=== PATIENT | female | born 1960 | race Caucasian/White ===

== ENCOUNTER 2022-04-25 16:23 | Emergency (ER) | payer MEDICARE, MEDICAID, SELFPAY ==
[2022-04-25] VITALS (7 sets, daily range): BP systolic 132–145; BP diastolic 83–96; PULSE 99–117; RESP 16–20; TEMP 36.9; O2SAT 92–98; BMI 35.4
--- NOTE | 2022-04-25 16:28 | XRR_ITS ---
PROCEDURE INFORMATION: Exam: XR Chest Exam date and time: 04/25/2022 4:33 PM Age: 62 years old Clinical indication: Pain; Angina pectoris; Additional info: Chest pain TECHNIQUE: Imaging protocol: Radiologic exam of the chest. Views: 1 view. COMPARISON: CT abdomen pelvis wo/w [id number] 08/21/2016 1:52 PM FINDINGS: Limitations: The study is made with less than full inspiration. Lungs: Visualized portions of the lungs are clear. Pleural spaces: Unremarkable. No pleural effusion. No pneumothorax. Heart/Mediastinum: Heart is within normal limits of size. Bones/joints: Unremarkable. XR/XR chest 1V portable [id number] IMPRESSION: No acute infiltrate.
--- NOTE | 2022-04-25 16:46 | PC.PHAR ---
pt states she doesnt know her medications-pt states she has a nurse from [facility] that sets her meds up on mondays-waiting on med list to be faxed from [facility]-notes are made in the pharmacy comments with last filled dates
--- NOTE | 2022-04-25 17:00 | PC.NURSE ---
PT NOT GIVEN ORDERED ASA D/T DUPLICATE DOSE BEING GIVEN BY EMS STORE RECEIVING SPECIALIST.
--- NOTE | 2022-04-25 17:02 | ECG_ITS ---
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 Measurements Intervals [place] Rate: 110 P: 30 [place]: 160 QRS: -5 QRSD: 97 T: 27 QT: 337 QTc: 457 Interpretive Statements SINUS TACHYCARDIA POSSIBLE ANTERIOR MYOCARDIAL INFARCTION , PROBABLY OLD [30 ms Q WAVE IN V3/V4, OR R < 0.2 mV IN V4] INFERIOR MYOCARDIAL INFARCTION , PROBABLY OLD [40+ ms Q WAVE AND/OR ST/T ABNORMALITY IN II/aVF] No previous ECG available for comparison Electronically Signed On 04-25-2022 20:59:24 SEARCH ENGINE OPTIMIZER by Faith Mancini M.D. [id number]
[2022-04-25 17:10] LABS: Basophils # 0.1 10^3/uL (0.0-0.1); Basophils % 0.7 %; Eosinophils # 0.1 10^3/uL (0.0-0.8); Eosinophils % 0.6 %; Hematocrit 39.4 % (37.0-47.0); Hemoglobin 12.5 g/dL (11.5-15.3); Lymphocytes # 2.5 10^3/uL (0.8-4.8); Lymphocytes % 29.6 %; Mean Corpuscular HGB Conc 31.7 g/dL (30.0-36.0); Mean Corpuscular Hemoglobin 26.4 pg (28.0-34.0); Mean Corpuscular Volume 83.1 fl (81-99); Mean Platelet Volume 9.6 fL (7.4-10.4); Monocytes # 0.9 10^3/uL (0.2-0.9); Monocytes % 10.9 %; Neutrophils # 4.91 10^3/uL (1.8-7.7); Nucleated Red Blood Cells % 0 %; Platelet Count 336 10^3/cmm (130-400); Red Blood Count 4.74 10^6/uL (4.1-5.3); Red Cell Distribution Width 14.6 % (12.1-15.1); White Blood Count 8.5 10^3/uL (4.0-10.0)
--- NOTE | 2022-04-25 17:17 | W.ED.CHESTPA ---
Documented by User: Alfredo Camilo DO 04/26/22 07:52 HPI - Chest Pain General: Chief Complaint: Chest Pain Stated Complaint: CHEST PAIN/ HEADACHE Time Seen by Provider: 04/25/22 16:28 Source: patient Mode of arrival: ambulatory History of Present Illness: 62-year-old female presents emergency room complaining of chest pain began around 1:00 today. No prior cardiac history she reports pain in the upper chest is a aching sensation without radiation she him into intermittently has had some shortness of breath and a slight productive cough she has not had any fevers sweats or chills nausea vomiting diarrhea no previous stress testing or angiography. Pain lasted for 10 minutes and then resolved spontaneously MD complaint: chest pain Onset (ago): hour(s) Timing of current episode: episodic Prior episodes: No Onset: during rest Pain location: substernal Pain radiation: none Severity: mild Quality: tightness and aching Relieving factors: nothing Exacerbating factors: nothing Associated symptoms: Deny abdominal pain, diaphoresis, dyspnea, fever(s), leg edema, nausea, palpitations, sense of impending doom, syncope or vomiting Treatment prior to arrival: none Review of Systems Const: Denies: fever(s), chills, fatigue, malaise or diaphoresis ENMT: Denies: throat pain, ear or mastoid pain, nasal discharge or nasal congestion Card: Denies: chest pain, palpitations, irregular heart rhythm, edema, swelling of feet/ankles or syncope Resp: Denies: dyspnea, productive cough, non-productive cough or wheezing GI: Denies: abdominal pain, nausea or vomiting : Denies: flank pain, difficulty voiding, dysuria, urinary frequency or urinary urgency Musc: Denies: neck pain or back pain Skin/Breast: Denies: rash or pruritus PFS ED PFSH: Medical History Chronic pruritus Social History Smoking and tobacco status: former smoker Physical Exam Const: GENERAL APPEARANCE: cooperative and comfortable ORIENTATION/CONSCIOUSNESS: Yes awake, Yes oriented to person, Yes oriented to place and Yes oriented to time HENMT: COMMON NORMALS: normocephalic, atraumatic and hearing grossly normal bilaterally HEAD & SCALP: normocephalic and atraumatic Resp: COMMON NORMALS: normal respiratory effort, No retractions, No use of accessory muscles and clear to auscultation bilaterally AUSCULTATION: clear to auscultation bilaterally Cardio: COMMON NORMALS: regular rate, regular rhythm and No murmurs present (Cardio) RATE: regular rate RHYTHM: regular rhythm GI: COMMON NORMALS: Soft to palpation and No hepatosplenomegaly present AUSCULTATION: Yes normoactive bowel sounds PALPATION: Yes Soft to palpation, No Tenderness to palpation present (GI), No Guarding due to palpation present (GI) and Yes No hepatosplenomegaly present Extremity: COMMON NORMALS: normal to inspection, capillary refill normal, no clubbing, cyanosis or edema, no calf tenderness and no pedal edema Neuro: SENSORIUM/ORIENTATION: Yes oriented to person, Yes oriented to place and Yes oriented to time Skin: COMMON NORMALS: no rashes or lesions noted GENERAL SKIN EXAM: no rashes or lesions noted Course Vital Signs: Vital signs: Vital Signs Temperature 98.4 F 04/25/22 16:28 Pulse Rate 102 H 04/25/22 19:40 Respiratory Rate 18 04/25/22 19:40 Blood Pressure 145/96 04/25/22 19:40 Pulse Oximetry 98 04/25/22 19:40 Oxygen Delivery Me thod 04/25/22 19:40 MDM - Chest Pain Medical Decision Making Care signed out to Dr. Sargent at change of shift. See final notes for diagnosis and disposition. Patient presents for chest pain is atypical in nature her initial and repeat troponins here were normal she is stable for discharge she is to follow-up with her PCP and return if worsening she understands agrees to plan. Medical Records I reviewed the patient's medical records. Lab Data I reviewed the patient's lab results. 04/25/22 17:00 04/25/22 17:00 Radiology Impressions Chest X-Ray 04/25/22 16:28 IMPRESSION: No acute infiltrate. Laboratory Results WBC 8.5 10^3/uL (4.0-10.0) 04/25/22 17:00 RBC 4.74 10^6/uL (4.1-5.3) 04/25/22 17:00 Hgb 12.5 g/dL (11.5-15.3) 04/25/22 17:00 Hct 39.4 % (37.0-47.0) 04/25/22 17:00 MCV 83.1 fl (81-99) 04/25/22 17:00 MCH 26.4 pg (28.0-34.0) L 04/25/22 17:00 MCHC 31.7 g/dL (30.0-36.0) 04/25/22 17:00 RDW 14.6 % (12.1-15.1) 04/25/22 17:00 Plt Count 336 10^3/cmm (130-400) 04/25/22 17:00 MPV 9.6 fL (7.4-10.4) 04/25/22 17:00 Neut % (Auto) 58.0 % 04/25/22 17:00 Lymph % (Auto) 29.6 % 04/25/22 17:00 [place] % (Auto) 10.9 % 04/25/22 17:00 Eos % (Auto) 0.6 % 04/25/22 17:00 Baso % (Auto) 0.7 % 04/25/22 17:00 Neut # (Auto) 4.91 10^3/uL (1.8-7.7) 04/25/22 17:00 Lymph # (Auto) 2.5 10^3/uL (0.8-4.8) 04/25/22 17:00 [place] # (Auto) 0.9 10^3/uL (0.2-0.9) 04/25/22 17:00 Eos # (Auto) 0.1 10^3/uL (0.0-0.8) 04/25/22 17:00 Baso # (Auto) 0.1 10^3/uL (0.0-0.1) 04/25/22 17:00 Nucleated RBC % (auto) 0 % 04/25/22 17:00 Nucleated RBCs # 0.0 /100WBC 04/25/22 17:00 Sodium 135 mmol/L (136-145) L 04/25/22 17:00 Potassium 3.2 mmol/L (3.5-5.1) L 04/25/22 17:00 Chloride 95 mmol/L (98-107) L 04/25/22 17:00 Carbon Dioxide 28 mmol/L (22-29) 04/25/22 17:00 Anion Gap 15.2 (5-19) 04/25/22 17:00 BUN 16 mg/dL (8-23) 04/25/22 17:00 Creatinine 0.7 mg/dL (0.5-0.9) 04/25/22 17:00 GFR Calculation 84.8 mL/min (90-130) L 04/25/22 17:00 Glucose 108 mg/dL (65-115) 04/25/22 17:00 Calculated Osmolality 282 mOsm/kg (285-295) L 04/25/22 17:00 Calcium 9.2 mg/dL (8.5-10.5) 04/25/22 17:00 Total Bilirubin 0.2 mg/dL (0.15-1.2) 04/25/22 17:00 AST 12 U/L (0-32) 04/25/22 17:00 ALT 14 U/L (0-33) 04/25/22 17:00 Alkaline Phosphatase 185 U/L (35-105) H 04/25/22 17:00 Troponin T Baseline 6 ng/L (0-10) 04/25/22 17:00 Troponin T 120 Minute 6.44 ng/L (0-10) 04/25/22 19:15 Delta Troponin T 0.44 ABS# (0-10) 04/25/22 19:15 Total Protein 8.0 g/dL (6.6-8.7) 04/25/22 17:00 Albumin 4.1 g/dL (3.5-5.2) 04/25/22 17:00 Globulin 3.9 g/dL (1.3-4.6) 04/25/22 17:00 Discharge Plan Discharge Patient Disposition: Home Clinical Impression: Chest pain Condition: Stable Prescriptions: No Action quetiapine 25 mg tablet 25 mg PO BEDTIME potassium chloride 10 mEq capsule, extended release 10 meq PO DAILY sertraline 100 mg tablet 150 mg PO DAILY sumatriptan succinate 50 mg tablet 50 mg PO . DIRECTED MDD 4 tabs PRN (Reason: Migraine Headache) omeprazole 40 mg capsule,delayed release(DR/EC) 40 mg PO DAILY levothyroxine 25 mcg tablet 25 mcg PO DAILY carbamazepine 200 mg tablet 200 mg PO TID hydrochlorothiazide 25 mg tablet 25 mg PO DAILY propranolol 20 mg tablet 20 mg PO BID duloxetine 30 mg capsule,delayed release(DR/EC) 30 mg PO BID loratadine 10 mg tablet 10 mg PO DAILY PRN (Reason: Itching) Discharge Orders: Discharge ED (Routine); Ordered 04/25/22 Ordered By: Rosi Sargent Discharge Diet: Advance as tolerated Discharge Activity: Resume usual activity Patient Instructions: Chest Pain (ED) Coding Level of Care Code ED Poultry Trimmer for Chg Fwd Exam Detailed Documented by User: Rosi Sargent MD 04/25/22 20:02 HPI - Chest Pain General: Chief Complaint: Chest Pain Stated Complaint: CHEST PAIN/ HEADACHE Time Seen by Provider: 04/25/22 16:28 [facility] ED PFSH: Medical History Chronic pruritus Social History Smoking and tobacco status: former smoker Course Vital Signs: Vital signs: Vital Signs Temperature 98.4 F 04/25/22 16:28 Pulse Rate 102 H 04/25/22 19:40 Respiratory Rate 18 04/25/22 19:40 Blood Pressure 145/96 04/25/22 19:40 Pulse Oximetry 98 04/25/22 19:40 Oxygen Delivery Me thod 04/25/22 19:40 MDM - Chest Pain Medical Decision Making Care signed out to Dr. Sargent at change of shift. See final notes for diagnosis and disposition. Patient presents for chest pain is atypical in nature her initial and repeat troponins here were normal she is stable for discharge she is to follow-up with her PCP and return if worsening she understands agrees to plan. Lab Data 04/25/22 17:00 04/25/22 17:00 Radiology Impressions Chest X-Ray 04/25/22 16:28 IMPRESSION: No acute infiltrate. Laboratory Results WBC 8.5 10^3/uL (4.0-10.0) 04/25/22 17:00 RBC 4.74 10^6/uL (4.1-5.3) 04/25/22 17:00 Hgb 12.5 g/dL (11.5-15.3) 04/25/22 17:00 Hct 39.4 % (37.0-47.0) 04/25/22 17:00 MCV 83.1 fl (81-99) 04/25/22 17:00 MCH 26.4 pg (28.0-34.0) L 04/25/22 17:00 MCHC 31.7 g/dL (30.0-36.0) 04/25/22 17:00 RDW 14.6 % (12.1-15.1) 04/25/22 17:00 Plt Count 336 10^3/cmm (130-400) 04/25/22 17:00 MPV 9.6 fL (7.4-10.4) 04/25/22 17:00 Neut % (Auto) 58.0 % 04/25/22 17:00 Lymph % (Auto) 29.6 % 04/25/22 17:00 [place] % (Auto) 10.9 % 04/25/22 17:00 Eos % (Auto) 0.6 % 04/25/22 17:00 Baso % (Auto) 0.7 % 04/25/22 17:00 Neut # (Auto) 4.91 10^3/uL (1.8-7.7) 04/25/22 17:00 Lymph # (Auto) 2.5 10^3/uL (0.8-4.8) 04/25/22 17:00 [place] # (Auto) 0.9 10^3/uL (0.2-0.9) 04/25/22 17:00 Eos # (Auto) 0.1 10^3/uL (0.0-0.8) 04/25/22 17:00 Baso # (Auto) 0.1 10^3/uL (0.0-0.1) 04/25/22 17:00 Nucleated RBC % (auto) 0 % 04/25/22 17:00 Nucleated RBCs # 0.0 /100WBC 04/25/22 17:00 Sodium 135 mmol/L (136-145) L 04/25/22 17:00 Potassium 3.2 mmol/L (3.5-5.1) L 04/25/22 17:00 Chloride 95 mmol/L (98-107) L 04/25/22 17:00 Carbon Dioxide 28 mmol/L (22-29) 04/25/22 17:00 Anion Gap 15.2 (5-19) 04/25/22 17:00 BUN 16 mg/dL (8-23) 04/25/22 17:00 Creatinine 0.7 mg/dL (0.5-0.9) 04/25/22 17:00 GFR Calculation 84.8 mL/min (90-130) L 04/25/22 17:00 Glucose 108 mg/dL (65-115) 04/25/22 17:00 Calculated Osmolality 282 mOsm/kg (285-295) L 04/25/22 17:00 Calcium 9.2 mg/dL (8.5-10.5) 04/25/22 17:00 Total Bilirubin 0.2 mg/dL (0.15-1.2) 04/25/22 17:00 AST 12 U/L (0-32) 04/25/22 17:00 ALT 14 U/L (0-33) 04/25/22 17:00 Alkaline Phosphatase 185 U/L (35-105) H 04/25/22 17:00 Troponin T Baseline 6 ng/L (0-10) 04/25/22 17:00 Troponin T 120 Minute 6.44 ng/L (0-10) 04/25/22 19:15 Delta Troponin T 0.44 ABS# (0-10) 04/25/22 19:15 Total Protein 8.0 g/dL (6.6-8.7) 04/25/22 17:00 Albumin 4.1 g/dL (3.5-5.2) 04/25/22 17:00 Globulin 3.9 g/dL (1.3-4.6) 04/25/22 17:00 Discharge Plan Discharge Patient Disposition: Home Clinical Impression: Chest pain Condition: Stable Prescriptions: No Action quetiapine 25 mg tablet 25 mg PO BEDTIME potassium chloride 10 mEq capsule, extended release 10 meq PO DAILY sertraline 100 mg tablet 150 mg PO DAILY sumatriptan succinate 50 mg tablet 50 mg PO . DIRECTED MDD 4 tabs PRN (Reason: Migraine Headache) omeprazole 40 mg capsule,delayed release(DR/EC) 40 mg PO DAILY levothyroxine 25 mcg tablet 25 mcg PO DAILY carbamazepine 200 mg tablet 200 mg PO TID hydrochlorothiazide 25 mg tablet 25 mg PO DAILY propranolol 20 mg tablet 20 mg PO BID duloxetine 30 mg capsule,delayed release(DR/EC) 30 mg PO BID loratadine 10 mg tablet 10 mg PO DAILY PRN (Reason: Itching) Discharge Orders: Discharge ED (Routine); Ordered 04/25/22 Ordered By: Rosi Sargent Discharge Diet: Advance as tolerated Discharge Activity: Resume usual activity Patient Instructions: Chest Pain (ED) Coding Level of Care Code ED Poultry Trimmer for Demarco Fwd Exam Detailed
[2022-04-25 17:30] LABS: Slide Review Slide Review Perform
[2022-04-25 17:41] LABS: Troponin(5th) Baseline 6 ng/L (0-10)
[2022-04-25 17:45] LABS: Alanine Aminotransferase 14 U/L (0-33); Albumin Level 4.1 g/dL (3.5-5.2); Alkaline Phosphatase 185 U/L (35-105); Anion Gap 15.2 (5-19); Aspartate Amino Transferase 12 U/L (0-32); Blood Urea Nitrogen 16 mg/dL (8-23); Calcium 9.2 mg/dL (8.5-10.5); Carbon Dioxide 28 mmol/L (22-29); Chloride 95 mmol/L (98-107); Creatinine Clr Calc Pharmacy 89.0935; Globulin 3.9 g/dL (1.3-4.6); Glomerular Filtration Rate 84.8 mL/min (90-130); Glucose 108 mg/dL (65-115); Osmolality Calculated 282 mOsm/kg (285-295); Potassium 3.2 mmol/L (3.5-5.1); Sodium 135 mmol/L (136-145); Total Bilirubin 0.2 mg/dL (0.15-1.2)
--- NOTE | 2022-04-25 18:28 | ECG_ITS ---
[facility] Test Date: 2022-04-25 Pat Name: Coral Rangel Department: Room: Gender: Female Scarrer: : 1960 Requested By: Alfredo Max Order Number: [id number] Nidia MD: Faith Mancini M.D. Measurements Intervals [place] Rate: 95 P: 37 [place]: 158 QRS: -4 QRSD: 91 T: 39 QT: 349 QTc: 440 Interpretive Statements SINUS RHYTHM POSSIBLE ANTERIOR MYOCARDIAL INFARCTION , PROBABLY OLD [30 ms Q WAVE IN V3/V4, OR R < 0.2 mV IN V4] INFERIOR MYOCARDIAL INFARCTION , PROBABLY OLD [40+ ms Q WAVE AND/OR ST/T ABNORMALITY IN II/aVF] Compared to ECG 04/25/2022 17:02:29 Sinus tachycardia no longer present Myocardial infarct finding still present Electronically Signed On 04-25-2022 21:06:56 DATA BASE DESIGN ANALYST by Faith Mancini M.D. [id number]
[2022-04-25] MEDS: acetaminophen 500 mg Tablet 1000 MG PO (19:11)
[2022-04-25 19:46] LABS: Troponin 5 2HR 6.44 ng/L (0-10)
[2022-04-25 19:57] LABS: Troponin 5 2HR Delta 0.44 ABS# (0-10)
== END 2022-04-25 20:18 | disposition home or self-care (01) ==
PROVIDERS: Family Medicine; Emergency Provider Emergency Medicine; PCP Nurse Practitioner Family
DX: R07.9 Chest pain, unspecified (principal)
CPT/HCPCS: 71045; 80053; 84484; 85025; 93005; 99285

== ENCOUNTER 2022-07-13 14:01 | Emergency (ER) | payer MEDICARE, MEDICAID, SELFPAY ==
[2022-07-13 14:05] VITALS: BP 166/84; PULSE 85; RESP 18; TEMP 36.6; O2SAT 97
--- NOTE | 2022-07-13 15:08 | W.ED.ABDPA2 ---
HPI - Abdominal Pain General: Chief Complaint: Abdominal Pain Stated Complaint: abd pain Time Seen by Provider: 07/13/22 15:04 History of Present Illness: Mr. Rangel is a 62-year-old lady presenting to the emergency department for abdominal pain. She reports right side and right lower quadrant abdominal pain with radiation to the low back for 1 week. Onset of symptoms was subacute without known specific provoking factor. Since that time course has worsened remains intermittent. Worse with movement and palpation. Denies associated GI symptoms or temporal component with specific activity such as eating. She reports similar episodes in the past though never this bad. No other specific changes in health, exacerbating, or alleviating factors identified. Onset (ago): day(s) Pain Consistency: intermittent Location: RLQ and R flank Severity: moderate Radiation: back Exacerbating factors: movement Relieving factors: nothing Associated Symptoms: Reports fever(s) (Subjective) and nausea Review of Systems General: Reports: 10 or more systems reviewed and unremarkable except in HPI and below Const: Reports: fever(s) (Subjective) GI: Reports: nausea PFSH ED PFSH: Medical History Chronic pruritus Social History Smoking and tobacco status: former smoker Physical Exam Const: COMMON NORMALS: alert GENERAL APPEARANCE: cooperative and well developed HENMT: COMMON NORMALS: normocephalic and atraumatic HEAD & SCALP: normocephalic and atraumatic Eye: COMMON NORMALS: conjunctivae normal CONJUNCTIVA: Yes conjunctivae normal SCLERA: sclerae normal Neck/C-Spine: COMMON NORMALS: supple GENERAL: Yes trachea midline Resp: COMMON NORMALS: normal respiratory effort EFFORT & INSPECTION: Yes able to speak in complete sentences Cardio: COMMON NORMALS: regular rate and regular rhythm RATE: regular rate RHYTHM: regular rhythm GI: COMMON NORMALS: Soft to palpation PALPATION: Yes Soft to palpation, Yes Tenderness to palpation present (GI) Details: RLQ and RUQ, No Guarding due to palpation present (GI) and No Rigid due to palpation Extremity: GENERAL: Yes normal exam except as noted and No edema Neuro: COMMON NORMALS: moves all extremities SENSORIUM/ORIENTATION: Yes alert and No Orientation impaired Psych: COMMON NORMALS: mental status grossly normal and Normal thought process present THOUGHT PROCESS: Normal thought process present Course Vital Signs: Vital signs: Vital Signs Temperature 97.9 F 07/13/22 14:05 Pulse Rate 76 07/13/22 18:38 Respiratory Rate 18 07/13/22 18:38 Blood Pressure 121/73 07/13/22 18:38 Pulse Oximetry 95 07/13/22 18:38 Oxygen Delivery Me thod Room Air 07/13/22 15:59 MDM - Abdominal Pain Medical Decision Making 62-year-old lady presenting to the emergency department for evaluation of abdominal symptoms. Exam as above. Patient is nontoxic in appearance. There is abdominal tenderness to palpation without evidence of acute surgical abdomen. Labs notable for no leukocytosis, normal hemoglobin and platelet count. Metabolic panel without significant derangement. Urinalysis with likely dehydration and urine concentration, there is some evidence of infection given symptoms. CT demonstrates mild hepatic steatosis similar to prior, mild degradation of study secondary to motion artifact. Overall no acute pathology to explain symptoms. Patient feels improved with antiemetic, analgesia. She is able to tolerate p.o. intake. Most likely etiology of patient's symptoms is somewhat unclear, may be related to urinary tract infection. The results of ED evaluation were discussed with the patient including prescriptions and/or symptomatic cares (if applicable) including appropriate and responsible use, followup plan, and return precautions. The patient verbalized understanding and felt safe for discharge. Medical Records I reviewed the patient's medical records. Lab Data I reviewed the patient's lab results. 07/13/22 15:50 07/13/22 15:50 Labs/Radiology: Radiology Impressions Abdomen/Pelvis CT 07/13/22 16:40 IMPRESSION: 1. The study is limited by patient respiratory motion artifact. 2. Decreased hepatic density is noted, consistent with mild hepatic steatosis. This is unchanged from CT abdomen pelvis of 08/21/2016. 3. No acute abnormality demonstrated in the abdomen and pelvis. Laboratory Results WBC 8.2 10^3/uL (4.0-10.0) 07/13/22 15:50 RBC 4.70 10^6/uL (4.1-5.3) 07/13/22 15:50 Hgb 12.6 g/dL (11.5-15.3) 07/13/22 15:50 Hct 41.3 % (37.0-47.0) 07/13/22 15:50 MCV 87.9 fl (81-99) 07/13/22 15:50 MCH 26.8 pg (28.0-34.0) L 07/13/22 15:50 MCHC 30.5 g/dL (30.0-36.0) 07/13/22 15:50 RDW 14.6 % (12.1-15.1) 07/13/22 15:50 Plt Count 338 10^3/cmm (130-400) 07/13/22 15:50 MPV 9.2 fL (7.4-10.4) 07/13/22 15:50 Neut % (Auto) 52.0 % 07/13/22 15:50 Lymph % (Auto) 38.3 % 07/13/22 15:50 [place] % (Auto) 7.6 % 07/13/22 15:50 Eos % (Auto) 1.2 % 07/13/22 15:50 Baso % (Auto) 0.5 % 07/13/22 15:50 Neut # (Auto) 4.27 10^3/uL (1.8-7.7) 07/13/22 15:50 Lymph # (Auto) 3.1 10^3/uL (0.8-4.8) 07/13/22 15:50 [place] # (Auto) 0.6 10^3/uL (0.2-0.9) 07/13/22 15:50 Eos # (Auto) 0.1 10^3/uL (0.0-0.8) 07/13/22 15:50 Baso # (Auto) 0.0 10^3/uL (0.0-0.1) 07/13/22 15:50 Nucleated RBC % (auto) 0 % 07/13/22 15:50 Nucleated RBCs # 0.0 /100WBC 07/13/22 15:50 Sodium 138 mmol/L (136-145) 07/13/22 15:50 Potassium 3.6 mmol/L (3.5-5.1) 07/13/22 15:50 Chloride 99 mmol/L (98-107) 07/13/22 15:50 Carbon Dioxide 27 mmol/L (22-29) 07/13/22 15:50 Anion Gap 15.6 (5-19) 07/13/22 15:50 BUN 20 mg/dL (8-23) 07/13/22 15:50 Creatinine 0.9 mg/dL (0.5-0.9) 07/13/22 15:50 GFR Calculation 63.4 mL/min (90-130) L 07/13/22 15:50 Glucose 94 mg/dL (65-115) 07/13/22 15:50 Calculated Osmolality 288 mOsm/kg (285-295) 07/13/22 15:50 Calcium 9.2 mg/dL (8.5-10.5) 07/13/22 15:50 Total Bilirubin 0.2 mg/dL (0.15-1.2) 07/13/22 15:50 AST 9 U/L (0-32) 07/13/22 15:50 ALT 12 U/L (0-33) 07/13/22 15:50 Alkaline Phosphatase 152 U/L (35-105) H 07/13/22 15:50 Total Protein 7.9 g/dL (6.6-8.7) 07/13/22 15:50 Albumin 4.0 g/dL (3.5-5.2) 07/13/22 15:50 Globulin 3.9 g/dL (1.3-4.6) 07/13/22 15:50 Lipase 36 U/L (13-60) 07/13/22 15:50 Urine Color Dark yellow (Yellow) 07/13/22 16:25 Urine Appearance Clear (CLEAR) 07/13/22 16:25 Urine pH 5 (5-7) 07/13/22 16:25 Ur Specific [place] 1.015 (1.005-1.030) 07/13/22 16:25 Urine Protein Trace (Negative) 07/13/22 16:25 Urine Glucose (UA) Norm (Normal) 07/13/22 16:25 Urine Ketones 1+ (Negative) H 07/13/22 16:25 Urine Blood Neg (Negative) 07/13/22 16:25 Urine Nitrate Negative (Negative) 07/13/22 16:25 Urine Bilirubin 1+ (Negative) H 07/13/22 16:25 Urine Urobilinogen 1 mg/dL (Negative) H 07/13/22 16:25 Ur Leukocyte Esterase 1+ (Negative) H 07/13/22 16:25 Urine RBC 0-4 /hpf (0-2) H 07/13/22 16:25 Urine WBC 0-4 /hpf (0-5) H 07/13/22 16:25 Ur Squamous Epith Cells 0-4 /hpf (0-5) H 07/13/22 16:25 Amorphous Sediment 2+ /hpf 07/13/22 16:25 Urine Bacteria Trace /hpf (NONE) 07/13/22 16:25 Discharge Plan Discharge Patient Disposition: Home Clinical Impression: Abdominal pain, Fatty liver, UTI (urinary tract infection) Condition: Stable Prescriptions: New Bactrim DS 800-160 mg tablet 1 tab PO BID Qty: 10 0RF ondansetron 4 mg tablet,disintegrating 4 mg PO Q8H PRN (Reason: nausea and vomiting) Qty: 15 0RF No Action quetiapine 25 mg tablet 25 mg PO BEDTIME potassium chloride 10 mEq capsule, extended release 10 meq PO DAILY sertraline 100 mg tablet 150 mg PO DAILY sumatriptan succinate 50 mg tablet 50 mg PO . DIRECTED MDD 4 tabs PRN (Reason: Migraine Headache) omeprazole 40 mg capsule,delayed release(DR/EC) 40 mg PO DAILY levothyroxine 25 mcg tablet 25 mcg PO DAILY carbamazepine 200 mg tablet 200 mg PO TID hydrochlorothiazide 25 mg tablet 25 mg PO DAILY propranolol 20 mg tablet 20 mg PO BID duloxetine 30 mg capsule,delayed release(DR/EC) 30 mg PO BID loratadine 10 mg tablet 10 mg PO DAILY PRN (Reason: Itching) Discharge Orders: Discharge ED (Routine); Ordered 07/13/22 Ordered By: Facundo Rogers Referrals: Amy Michaels APN [Primary Care Provider] - Discharge Diet: Advance as tolerated and Clear Liquid Discharge Activity: Increase activity as tolerated Patient Instructions: Sulfamethoxazole/Trimethoprim (By mouth), Urinary Tract Infection in Women (ED), Abdominal Pain (ED), Opioid Safety Activity Restrictions/Additional Instructions: Thank you for visiting the emergency department. You were seen and evaluated for abdominal pain. The exact cause of your symptoms is unclear though may be related to urinary tract infection which will be treated with antibiotics. Please ensure that you are staying hydrated. You may use [id number] medications such as acetaminophen and ibuprofen for pain however please do not exceed the daily recommended dosage as listed on the packaging and please keep in mind that many namebrand medications contain the same active ingredients. Please avoid these medications if previously instructed to do so by another physician due to other underlying medical condition. Return to the emergency department for uncontrolled symptoms or anything else that you are concerned about and feel needs emergency department evaluation. Coding Level of Care Code ED Audio Visual Aids Director for Demarco Greene
[2022-07-13] MEDS: ondansetron 2 mg/ML SDV 2 mL 4 MG IVP (15:47)
[2022-07-13] MEDS: morphine 4 mg/mL SDV 1 mL IVP (15:47)
[2022-07-13 15:59] VITALS: RESP 16; O2SAT 95
[2022-07-13 16:04] LABS: Basophils % 0.5 %; Eosinophils # 0.1 10^3/uL (0.0-0.8); Eosinophils % 1.2 %; Hematocrit 41.3 % (37.0-47.0); Hemoglobin 12.6 g/dL (11.5-15.3); Lymphocytes # 3.1 10^3/uL (0.8-4.8); Lymphocytes % 38.3 %; Mean Corpuscular HGB Conc 30.5 g/dL (30.0-36.0); Mean Corpuscular Hemoglobin 26.8 pg (28.0-34.0); Mean Corpuscular Volume 87.9 fl (81-99); Mean Platelet Volume 9.2 fL (7.4-10.4); Monocytes # 0.6 10^3/uL (0.2-0.9); Monocytes % 7.6 %; Neutrophils # 4.27 10^3/uL (1.8-7.7); Nucleated Red Blood Cells % 0 %; Platelet Count 338 10^3/cmm (130-400); Red Cell Distribution Width 14.6 % (12.1-15.1); White Blood Count 8.2 10^3/uL (4.0-10.0)
[2022-07-13 16:20] LABS: Alanine Aminotransferase 12 U/L (0-33); Alkaline Phosphatase 152 U/L (35-105); Anion Gap 15.6 (5-19); Aspartate Amino Transferase 9 U/L (0-32); Blood Urea Nitrogen 20 mg/dL (8-23); Calcium 9.2 mg/dL (8.5-10.5); Carbon Dioxide 27 mmol/L (22-29); Chloride 99 mmol/L (98-107); Globulin 3.9 g/dL (1.3-4.6); Glomerular Filtration Rate 63.4 mL/min (90-130); Glucose 94 mg/dL (65-115); Lipase 36 U/L (13-60); Osmolality Calculated 288 mOsm/kg (285-295); Potassium 3.6 mmol/L (3.5-5.1); Sodium 138 mmol/L (136-145); Total Bilirubin 0.2 mg/dL (0.15-1.2); Total Protein 7.9 g/dL (6.6-8.7)
--- NOTE | 2022-07-13 16:40 | CTR_ITS ---
PROCEDURE INFORMATION: Exam: CT Abdomen And Pelvis With Contrast Exam date and time: 07/13/2022 4:58 PM Age: 62 years old Clinical indication: Abdominal pain; Flank; Right; Prior surgery; Surgery type: Tubal; Additional info: Rlq/r flank pain TECHNIQUE: Imaging protocol: Computed tomography of the abdomen and pelvis with contrast. Radiation optimization: All CT scans at this facility use at least one of these dose optimization techniques: automated exposure control; mA and/or kV adjustment per patient size (includes targeted exams where dose is matched to clinical indication); or iterative reconstruction. Contrast material: OMNI 350; Contrast volume: 100 ml; Contrast route: INTRAVENOUS (IV); REPORTING DATA: Count of CT and Cardiac NM exams in prior 12 months: This patient has received 0 known CTs and 0 known cardiac nuclear medicine studies in the 12 months prior to the current study. COMPARISON: CT abdomen pelvis wo/w [id number] 08/21/2016 1:52 PM RADIATION DOSE METRICS: Total DLP (mGy-cm): 1187.33 FINDINGS: Limitations: The study is limited by patient respiratory motion artifact. Lungs: The lung bases appear unremarkable. Liver: The liver is unremarkable in appearance. Decreased hepatic density is noted, consistent with mild hepatic steatosis. Gallbladder and bile ducts: No calcified gallstones in the gallbladder. No gallbladder wall thickening. No pericholecystic fluid. No biliary dilatation. Pancreas: The pancreas is normal in appearance. No pancreatic duct dilatation. Spleen: No focal splenic lesion. No splenomegaly. Adrenal glands: The adrenal glands appear within normal limits. Kidneys and ureters: The kidneys are normal in morphology. No hydronephrosis. No solid mass. Stomach and bowel: No acute gastric abnormality demonstrated. The small bowel is unremarkable as demonstrated. No acute abnormality/inflammatory change of the colon. Appendix: The appendix is normal in appearance. No evidence of appendicitis. Intraperitoneal space: No pneumoperitoneum. No significant fluid collection. Vasculature: The aorta is unremarkable as demonstrated. The aorta is unremarkable as demonstrated. Lymph nodes: No pathologically enlarged lymph nodes are demonstrated. No pathologically enlarged lymph nodes are demonstrated. Urinary bladder: Empty urinary bladder. No acute bladder abnormality noted. Reproductive: Uterus and adnexa appear unremarkable. Bones/joints: Scoliosis and degenerative change of the lumbar spine. No acute osseous abnormality. Soft tissues: The soft tissues are unremarkable as demonstrated. CT/CT abdomen pelvis w con* [id number] IMPRESSION: 1. The study is limited by patient respiratory motion artifact. 2. Decreased hepatic density is noted, consistent with mild hepatic steatosis. This is unchanged from CT abdomen pelvis of 08/21/2016. 3. No acute abnormality demonstrated in the abdomen and pelvis.
[2022-07-13 17:12] LABS: Glucose Urine UA Norm (Normal); Ketones Urine 1+ (Negative); Protein Urine Trace (Negative); Specific Gravity, Urine 1.015 (1.005-1.030); Urine Appearance Clear (CLEAR); Urine Color Dark Yellow (Yellow); pH Urine 5 (5-7)
[2022-07-13 17:13] LABS: Add Urine Culture? No; Add Urine Microscopic? YES; Amorphous Sediment Urine 2+ /hpf; Bacteria Urine TRACE /hpf; Bilirubin Urine 1+ (Negative); Blood Urine Neg (Negative); Leukocyte Esterase Urine 1+ (Negative); Nitrate Urine Negative (Negative); RBC Urine 0-4 /hpf (0-2); Squamous Epithelial Cell Urine 0-4 /hpf (0-5); Urobilinogen Urine 1 mg/dL (Negative); WBC Urine 0-4 /hpf (0-5)
[2022-07-13] MEDS: iohexol 350 mg/mL 500 mL Btl (per mL) IV (17:13)
[2022-07-13 18:38] VITALS: BP 121/73; PULSE 76; RESP 18; O2SAT 95
== END 2022-07-13 18:39 | disposition home or self-care (01) ==
PROVIDERS: Emergency Provider Emergency Medicine; PCP Nurse Practitioner Family
DX: N39.0 Urinary tract infection, site not specified (principal); K76.0 Fatty (change of) liver, not elsewhere classified; Z87.891 Personal history of nicotine dependence
CPT/HCPCS: 74177; 80053; 81001; 83690; 85025; 96374; 96375; 99285; J2270; J2405; Q9967

== ENCOUNTER 2023-05-22 08:55 | Outpatient (CLI) | payer MEDICARE, MEDICAID, SELFPAY ==
--- NOTE | 2023-05-22 09:00 | MM_ITS ---
WS: [id number] VIEWS: MLO and CC views both breasts. 3D digital tomosynthesis is also included in this exam. No priors Findings: There was no sign of mass, architectural distortion or suspicious calcification in either breast. The re are scattered areas of fibroglandular density Impression: MM/[place] [id number] BI-RADS: 1-Negative FOLLOW-UP: 1 Year Follow-up This mammogram was also analyzed by the Computer Aided Detection System R2 Imag e Environmental Services Manager.
== END 2023-05-22 08:56 | disposition home or self-care (01) ==
LOC: MOBLMAM 09:07
PROVIDERS: PCP Nurse Practitioner Family; Visit Provider Nurse Practitioner Family
DX: Z12.31 Encounter for screening mammogram for malignant neoplasm of breast (principal)
CPT/HCPCS: 77063; 77067

== ENCOUNTER 2023-07-15 20:00 | Outpatient (CLI) | payer MEDICARE, MEDICAID, SELFPAY | END 2023-07-15 20:01 | disposition home or self-care (01) | LOC: SLEEP 07-16 05:53 | PROVIDERS: PCP Nurse Practitioner Family; Visit Provider Nurse Practitioner Family | DX: G47.10 Hypersomnia, unspecified (principal); R53.83 Other fatigue | CPT/HCPCS: 95810 ==

== ENCOUNTER → 2024-07-08 15:43 | Outpatient (BNVA) | payer MEDICARE, OTHER, SELFPAY | PROVIDERS: PCP Nurse Practitioner Family; Referring Provider Psychiatry & Neurology Psychiatry; Visit Provider Psychiatry & Neurology Psychiatry | DX: Z79.899 Other long term (current) drug therapy (principal) | CPT/HCPCS: 80061; 83036 ==

== ENCOUNTER → 2024-09-29 14:38 | Outpatient (BNVA) | payer MEDICARE, SELFPAY ==
[2024-07-14 14:25] VITALS: BP 149/90; BMI 36.0
== END ==
PROVIDERS: PCP Nurse Practitioner Family
DX: F32.9 Major depressive disorder, single episode, unspecified (principal); Z76.89 Persons encountering health services in other specified circumstances
CPT/HCPCS: 80053; 84443; 85025

== ENCOUNTER 2024-11-12 15:55 | Emergency (ER) | payer OTHER, MEDICAID, SELFPAY ==
[2024-07-14 14:25] VITALS: BP 149/90; BMI 36.0
[2024-11-12 15:56] VITALS: BP 164/86; PULSE 67; RESP 17; TEMP 36.6; O2SAT 97; BMI 34.7
--- NOTE | 2024-11-12 16:21 | W.ED.GENADLT ---
HPI - General Adult General: Chief complaint: Headache Stated complaint: htn Time Seen by Provider: 11/12/24 15:57 Source: patient Mode of arrival: ambulatory Limitations: no limitations History of Present Illness: Patient is a 64-year-old female presents to ED today via EMS for main complaint of diarrhea. She initially tells me she has had diarrhea for 2 weeks although later tells me that she has been taking Imodium for several months secondary to diarrhea. She states she was reportedly seen at [facility] yesterday and had blood work and a CT scan and was told that all of this was normal and sent home. Patient states she is frustrated that they did not admit her. She states she has not been able to see her primary care provider. She states she gets diffuse abdominal pain anytime she tries to eat. She has not noted any bloody stools. No fevers. No vomiting. She was instructed for a bland liquid diet yesterday upon discharge but states this morning she ate spaghetti. She does state they took stool samples at [facility] as well. States at some point she has had a EGD/colonoscopy imaging. Also has concerns for some elevated BP readings at home. She does take medications for her blood pressure. Onset (ago): month(s) Quality: other (cramping) Pain Consistency: intermittent Exacerbating factors: eating Associated symptoms: Deny chest pain, dyspnea, headache(s), malaise, nausea, rash or vomiting Treatments prior to arrival: none Related Data Home Medications ?Medication ?Instructions ?Recorded ?Confirmed carbamazepine 200 mg tablet 200 mg PO TID 04/25/22 10/27/24 hydrochlorothiazide 25 mg tablet 25 mg PO DAILY 04/25/22 10/27/24 levothyroxine 25 mcg tablet 25 mcg PO DAILY 04/25/22 10/27/24 loratadine 10 mg tablet 10 mg PO DAILY PRN Itching 04/25/22 10/27/24 omeprazole 40 mg capsule,delayed 40 mg PO DAILY 04/25/22 10/27/24 release potassium chloride 10 mEq 10 meq PO DAILY 04/25/22 10/27/24 capsule,extended release propranolol 20 mg tablet 20 mg PO BID 04/25/22 10/27/24 sumatriptan succinate 50 mg tablet 50 mg PO . DIRECTED PRN Migraine 04/25/22 10/27/24 Headache Previous Rx's ?Medication ?Instructions ?Recorded ondansetron 4 mg disintegrating 4 mg PO Q8H PRN nausea and 07/13/22 tablet vomiting #15 tabs fluticasone propionate 50 2 spray intranasal DAILY #16 grams 07/28/23 mcg/actuation nasal spray,suspension (Flonase Allergy Relief) lithium carbonate 300 mg 300 mg PO DAILY #30 tabs 10/05/24 tablet,extended release sertraline 25 mg tablet 25 mg PO DAILY #30 tabs 10/27/24 Allergies Allergy/AdvReac Type Severity Reaction Status Date / Time Penicillins Allergy ADR-Gastrointestinal Verified 10/27/24 09:21 Upset Review of Systems Const: Denies: fever(s), chills, body aches, fatigue or malaise Card: Denies: chest pain Resp: Denies: dyspnea GI: Reports: abdominal pain, diarrhea and GI cramping; Denies: nausea, vomiting, hematochezia or melena : Denies: flank pain, difficulty voiding, dysuria, urinary frequency, urinary urgency or urinary hesitancy Musc: Denies: neck pain, back pain, extremity pain, extremity swelling, joint pain, joint swelling or joint redness Skin/Breast: Denies: rash Neuro: Denies: headache(s), numbness in extremities, weakness in extremities, sensory changes or dizziness PFSH ED PFSH: Medical History Psychiatric care Chronic pruritus Social History Smoking and tobacco/nicotine status: former use of tobacco/nicotine Alcohol intake: former Substance/Drug Use: never Adopted: No Caregiver/support person: No Lives independently: Yes Housing: Apartment Marital status: / Number of children: 4 Number of grandchildren: 5 Highest education level completed: High School Graduate service: No Current occupational status: unemployed Current occupational exposures/hazards: No Pets and animals: No Leisure activites: other Leisure activities details: watch TV drawing Sexually active: No Do you think of yourself as: Straight/Heterosexual Current gender identity: Female Ekaterina/Sabianism: [employer] Special ekaterina needs: No Agree to transfusion: Yes Female Reproductive History: Para: 2 Spontaneous abortions: No Physical Exam Const: COMMON NORMALS: no acute distress, average body habitus, patient oriented x3, no limitations, healthy appearing, alert and well nourished GENERAL APPEARANCE: cooperative ORIENTATION/CONSCIOUSNESS: Yes awake, Yes oriented to person, Yes oriented to place and Yes oriented to time HENMT: COMMON NORMALS: normocephalic and atraumatic HEAD & SCALP: normal to inspection, normocephalic and atraumatic Chest: COMMONS NORMALS: normal inspection of the chest and normal palpation of entire chest wall Resp: COMMON NORMALS: normal respiratory effort and clear to auscultation bilaterally AUSCULTATION: clear to auscultation bilaterally Cardio: COMMON NORMALS: regular rate and regular rhythm RATE: regular rate RHYTHM: regular rhythm GI: COMMON NORMALS: Normal to inspection, nondistended, normoactive bowel sounds present, Soft to palpation, No hepatosplenomegaly present and no masses INSPECTION: Yes normal to inspection AUSCULTATION: Yes normoactive bowel sounds PALPATION: Yes Soft to palpation, Yes Tenderness to palpation present (GI) (diffuse but more so throughout upper abdomen-non surgical exam), No Guarding due to palpation present (GI), No Rigid due to palpation and Yes No hepatosplenomegaly present : COMMON NORMALS: Yes no CVA tenderness BLADDER/KIDNEY EXAM: Yes no CVA tenderness Back/Pelvis: COMMON NORMALS: no CVA tenderness and thoracic and lumbar spine normal to inspection Extremity: GENERAL: Yes normal exam except as noted Neuro: CATHIE COMA SCALE: document GCS findings Cathie coma scale eye opening: Spontaneous Cathie coma scale verbal response: Orientated Cathie coma scale motor response: Obey commands [place] coma scale total score: 15 COMMON NORMALS: patient oriented x3, CN's II-XII intact bilaterally, moves all extremities, no focal motor deficits and no sensory deficits noted SENSORIUM/ORIENTATION: Yes alert, Yes oriented to person, Yes oriented to place and Yes oriented to time Skin: COMMON NORMALS: no rashes or lesions noted GENERAL SKIN EXAM: no rashes or lesions noted Course Vital Signs: Vital signs: Vital Signs Temperature 97.8 F 11/12/24 15:56 Pulse Rate 67 11/12/24 15:56 Respiratory Rate 17 11/12/24 15:56 Blood Pressure 164/86 11/12/24 15:56 Pulse Oximetry 97 11/12/24 15:56 Oxygen Delivery Me thod Room Air 11/12/24 15:56 MDM - General Adult Medical Decision Making Patient appears in absolutely no acute distress. Vital signs are stable. Her blood work overall is nonactionable. UA is clear. Abdomen is nonsurgical. Her main complaint was diarrhea over the past several months. Imodium is not helping. We did try to obtain records from [facility] but they were not able to be faxed throughout her visit. She reportedly had a CT abdomen/pelvis yesterday that was unremarkable. I do not feel like we need to repeat this today based on her history and physical exam today. They reportedly also obtained stool samples. Recommend she follow-up with her primary care provider. Will also place case management referral for her to see general surgery. We spoke about GI but she is not able to get out of town ([facility]) for these appointments and wanted to see general surgery. Discussed how diarrhea can have many etiologies. She is agreeable to also follow-up with primary care. Medical Records I reviewed the patient's medical records. Lab Data I reviewed the patient's lab results. 11/12/24 17:04 11/12/24 17:04 Laboratory Results WBC 7.32 10^3/uL (3.29-11.43) 11/12/24 17:04 RBC 4.11 10^6/uL (3.85-5.65) 11/12/24 17:04 Hgb 11.30 g/dL (11.27-16.99) 11/12/24 17:04 Hct 36.3 % (36-47) 11/12/24 17:04 MCV 88.3 fl (85-98) 11/12/24 17:04 MCH 27.5 pg (27-33) 11/12/24 17:04 MCHC 31.1 g/dL (30-55) 11/12/24 17:04 RDW 13.6 % (12.1-15.1) 11/12/24 17:04 Plt Count 256 10^3/cmm (157-399) 11/12/24 17:04 MPV 9.7 fL (7.4-10.4) 11/12/24 17:04 Neut % (Auto) 50.0 % 11/12/24 17:04 Lymph % (Auto) 40.8 % 11/12/24 17:04 Mclennan % (Auto) 7.1 % 11/12/24 17:04 Eos % (Auto) 1.5 % 11/12/24 17:04 Baso % (Auto) 0.5 % 11/12/24 17:04 Neut # (Auto) 3.65 10^3/uL (1.8-7.7) 11/12/24 17:04 Lymph # (Auto) 3.0 10^3/uL (0.8-4.8) 11/12/24 17:04 Mclennan # (Auto) 0.5 10^3/uL (0.2-0.9) 11/12/24 17:04 Eos # (Auto) 0.1 10^3/uL (0.0-0.8) 11/12/24 17:04 Baso # (Auto) 0.0 10^3/uL (0.0-0.1) 11/12/24 17:04 Nucleated RBC % (auto) 0 % 11/12/24 17:04 Nucleated RBCs # 0.0 /100WBC 11/12/24 17:04 Sodium 141 mmol/L (136-145) 11/12/24 17:04 Potassium 3.8 mmol/L (3.5-5.1) 11/12/24 17:04 Chloride 105 mmol/L (98-107) 11/12/24 17:04 Carbon Dioxide 25 mmol/L (22-29) 11/12/24 17:04 Anion Gap 14.8 (5-19) 11/12/24 17:04 BUN 10 mg/dL (8-23) 11/12/24 17:04 Creatinine 0.8 mg/dL (0.5-0.9) 11/12/24 17:04 GFR Calculation 72.2 mL/min (90-130) L 11/12/24 17:04 Glucose 94 mg/dL (65-115) 11/12/24 17:04 Calculated Osmolality 291 mOsm/kg (285-295) 11/12/24 17:04 Calcium 8.8 mg/dL (8.5-10.5) 11/12/24 17:04 Total Bilirubin 0.2 mg/dL (0.15-1.2) 11/12/24 17:04 AST 9 U/L (0-32) 11/12/24 17:04 ALT 9 U/L (0-33) 11/12/24 17:04 Alkaline Phosphatase 129 U/L (35-105) H 11/12/24 17:04 Total Protein 6.6 g/dL (6.6-8.7) 11/12/24 17:04 Albumin 3.8 g/dL (3.5-5.2) 11/12/24 17:04 Globulin 2.8 g/dL (1.3-4.6) 11/12/24 17:04 Lipase 32 U/L (13-60) 11/12/24 17:04 Urine Color Yellow (Yellow) 11/12/24 16:32 Urine Appearance Clear (CLEAR) 11/12/24 16:32 Urine pH 7.5 (5-7) 11/12/24 16:32 Ur Specific Mckenney 1.006 (1.005-1.030) 11/12/24 16:32 Urine Protein Negative (Negative) 11/12/24 16:32 Urine Glucose (UA) Negative (Normal) 11/12/24 16:32 Urine Ketones Negative (Negative) 11/12/24 16:32 Urine Blood Negative (Negative) 11/12/24 16:32 Urine Nitrate Negative (Negative) 11/12/24 16:32 Urine Bilirubin Negative (Negative) 11/12/24 16:32 Urine Urobilinogen 0.2 mg/dL (Negative) 11/12/24 16:32 Ur Leukocyte Esterase Trace (Negative) A 11/12/24 16:32 Urine RBC 0-2 /hpf (0-2) 11/12/24 16:32 Urine WBC 0-5 /hpf (0-5) 11/12/24 16:32 Ur Squamous Epith Cells 6-10 /hpf (0-5) 11/12/24 16:32 Amorphous Sediment Not Reportable 11/12/24 16:32 Urine Bacteria None seen /hpf (NONE) 11/12/24 16:32 Hyaline Casts 0-4 /lpf H 11/12/24 16:32 No radiology studies performed this visit Discharge Plan Discharge Patient Disposition: Home Clinical Impression: Chronic diarrhea Condition: Stable Prescriptions: No Action sertraline 25 mg tablet 25 mg PO DAILY Qty: 30 3RF fluticasone propionate [Flonase Allergy Relief] 50 mcg/actuation spray,suspension 2 spray intranasal DAILY Qty: 16 0RF Rx Instructions: administer into each nostril lithium carbonate 300 mg tablet extended release 300 mg PO DAILY Qty: 30 3RF potassium chloride 10 mEq capsule, extended release 10 meq PO DAILY sumatriptan succinate 50 mg tablet 50 mg PO . DIRECTED MDD 4 tabs PRN (Reason: Migraine Headache) omeprazole 40 mg capsule,delayed release(DR/EC) 40 mg PO DAILY levothyroxine 25 mcg tablet 25 mcg PO DAILY carbamazepine 200 mg tablet 200 mg PO TID hydrochlorothiazide 25 mg tablet 25 mg PO DAILY propranolol 20 mg tablet 20 mg PO BID loratadine 10 mg tablet 10 mg PO DAILY PRN (Reason: Itching) ondansetron 4 mg tablet,disintegrating 4 mg PO Q8H PRN (Reason: nausea and vomiting) Qty: 15 0RF Discharge Orders: Discharge ED (Routine); Ordered 11/12/24 Ordered By: Nilam Morales Referrals: Jenise Gamez, TRANSPORTATION ENGINEERING TECHNICIAN [Primary Care Provider, Unknown] Patient Instructions: Chronic Diarrhea (DC), Patient Portal & Ness Instructions Activity Restrictions/Additional Instructions: As we discussed, I would like you to follow-up with primary care as soon as possible for further evaluation of your diarrhea. I will also place a case management referral to get you set up with general surgery. You may return to the emergency department for onset of severe and constant abdominal pain, repetitive episodes of vomiting, fevers, frequent bloody stools, generally feeling worse or unwell, or any other concerns you may have. Print Language: Cymro Coding Level of Care Code ED Access Spec for Demarco Greene
[2024-11-12 17:12] LABS: Glucose Urine UA Negative (Normal); Nitrate Urine Negative (Negative); Specific Gravity, Urine 1.006 (1.005-1.030)
[2024-11-12 17:19] LABS: Add Urine Microscopic? YES
[2024-11-12 17:20] LABS: Hematocrit 36.3 % (36-47); Hemoglobin 11.30 g/dL (11.27-16.99); Mean Corpuscular HGB Conc 31.1 g/dL (30-55); Mean Corpuscular Hemoglobin 27.5 pg (27-33); Mean Corpuscular Volume 88.3 fl (85-98); Nucleated Red Blood Cells % 0 %; Platelet Count 256 10^3/cmm (157-399); Red Blood Count 4.11 10^6/uL (3.85-5.65); White Blood Count 7.32 10^3/uL (3.29-11.43)
[2024-11-12 17:34] LABS: Alanine Aminotransferase 9 U/L (0-33); Albumin Level 3.8 g/dL (3.5-5.2); Alkaline Phosphatase 129 U/L (35-105); Anion Gap 14.8 (5-19); Aspartate Amino Transferase 9 U/L (0-32); Blood Urea Nitrogen 10 mg/dL (8-23); Calcium 8.8 mg/dL (8.5-10.5); Carbon Dioxide 25 mmol/L (22-29); Chloride 105 mmol/L (98-107); Creatinine Clr Calc Pharmacy 75.1442; Globulin 2.8 g/dL (1.3-4.6); Glucose 94 mg/dL (65-115); Lipase 32 U/L (13-60); Osmolality Calculated 291 mOsm/kg (285-295); Potassium 3.8 mmol/L (3.5-5.1); Sodium 141 mmol/L (136-145); Total Protein 6.6 g/dL (6.6-8.7)
--- NOTE | 2024-11-15 10:04 | DCPLANNER ---
messaged gen surg for er f/u
== END 2024-11-12 19:07 | disposition home or self-care (01) ==
PROVIDERS: Emergency Provider Physician Assistant; PCP Nurse Practitioner Family
DX: K52.9 Noninfective gastroenteritis and colitis, unspecified (principal); Z87.891 Personal history of nicotine dependence
CPT/HCPCS: 36415; 80053; 81001; 83690; 85025; 99283; J9999

== ENCOUNTER → 2024-11-26 07:44 | Outpatient (BNVA) | payer OTHER, MEDICAID, SELFPAY ==
[2024-07-14 14:25] VITALS: BP 149/90; BMI 36.0
== END ==
PROVIDERS: PCP Nurse Practitioner Family; Visit Provider Student in an Organized Health Care Education/Training Program
DX: K59.09 Other constipation (principal)
CPT/HCPCS: 99203

== ENCOUNTER 2024-11-28 14:30 | Emergency (ER) | payer OTHER, MEDICAID, SELFPAY ==
[2024-07-14 14:25] VITALS: BP 149/90; BMI 36.0
[2024-11-28 14:43] VITALS: BP 160/90; PULSE 64; RESP 18; TEMP 36.7; O2SAT 96; BMI 34.3
--- NOTE | 2024-11-28 14:43 | W.ED.GENADLT ---
HPI - General Adult General: Chief complaint: Nausea/Vomiting/Diarrhea Stated complaint: ab pain, diarrhea Time Seen by Provider: 11/28/24 14:33 Source: patient Mode of arrival: ambulatory Limitations: no limitations History of Present Illness: 64-year-old female states she has had GI issues chronically. States she has chronic constipation she had seen Dr. Kramer last week for that who referred her to GI. She states that over the last few weeks she is now actually having diarrhea and some abdominal cramping. She denies any fevers. States she has taken Imodium [id number] with no improvement. Associated symptoms: Deny chest pain, dyspnea, headache(s), nausea, rash or vomiting Related Data Home Medications ?Medication ?Instructions ?Recorded ?Confirmed carbamazepine 200 mg tablet 200 mg PO TID 04/25/22 11/26/24 hydrochlorothiazide 25 mg tablet 25 mg PO DAILY 04/25/22 11/26/24 levothyroxine 25 mcg tablet 25 mcg PO DAILY 04/25/22 11/26/24 loratadine 10 mg tablet 10 mg PO DAILY PRN Itching 04/25/22 11/26/24 omeprazole 40 mg capsule,delayed 40 mg PO DAILY 04/25/22 11/26/24 release potassium chloride 10 mEq 10 meq PO DAILY 04/25/22 11/26/24 capsule,extended release propranolol 20 mg tablet 20 mg PO BID 04/25/22 11/26/24 sumatriptan succinate 50 mg tablet 50 mg PO . DIRECTED PRN Migraine 04/25/22 11/26/24 Headache Previous Rx's ?Medication ?Instructions ?Recorded ondansetron 4 mg disintegrating 4 mg PO Q8H PRN nausea and 07/13/22 tablet vomiting #15 tabs fluticasone propionate 50 2 spray intranasal DAILY #16 grams 07/28/23 mcg/actuation nasal spray,suspension (Flonase Allergy Relief) lithium carbonate 300 mg 300 mg PO DAILY #30 tabs 10/05/24 tablet,extended release sertraline 25 mg tablet 25 mg PO DAILY #30 tabs 10/27/24 Allergies Allergy/AdvReac Type Severity Reaction Status Date / Time Penicillins Allergy ADR-Gastrointestinal Verified 11/26/24 07:46 Upset Review of Systems Const: Denies: fever(s), chills, body aches or change in appetite ENMT: Denies: throat pain or dental pain Card: Denies: chest pain Resp: Denies: dyspnea GI: Reports: abdominal pain and diarrhea; Denies: nausea or vomiting : Denies: dysuria Musc: Denies: neck pain or back pain Skin/Breast: Denies: rash Neuro: Denies: headache(s) PFS ED PFSH: Medical History Psychiatric care Chronic pruritus Social History Smoking and tobacco/nicotine status: former use of tobacco/nicotine Alcohol intake: former Substance/Drug Use: never Adopted: No Caregiver/support person: No Lives independently: Yes Housing: Apartment Marital status: / Number of children: 4 Number of grandchildren: 5 Highest education level completed: High School Graduate service: No Current occupational status: unemployed Current occupational exposures/hazards: No Pets and animals: No Leisure activites: other Leisure activities details: watch TV drawing Sexually active: No Do you think of yourself as: Straight/Heterosexual Current gender identity: Female Ekaterina/Yazidism: [employer] Special ekaterina needs: No Agree to transfusion: Yes Female Reproductive History: Para: 2 Spontaneous abortions: No Physical Exam Const: COMMON NORMALS: no acute distress, patient oriented x3 and healthy appearing HENMT: COMMON NORMALS: normocephalic and atraumatic HEAD & SCALP: normocephalic and atraumatic Eye: COMMON NORMALS: conjunctivae normal CONJUNCTIVA: Yes conjunctivae normal Neck/C-Spine: COMMON NORMALS: full ROM and supple Chest: COMMONS NORMALS: normal inspection of the chest and normal palpation of entire chest wall Resp: COMMON NORMALS: normal respiratory effort, No retractions, No use of accessory muscles and clear to auscultation bilaterally AUSCULTATION: clear to auscultation bilaterally Cardio: COMMON NORMALS: regular rate, regular rhythm and No murmurs present (Cardio) RATE: regular rate RHYTHM: regular rhythm GI: COMMON NORMALS: Normal to inspection, nondistended, normoactive bowel sounds present, Soft to palpation, non-tender and no masses PALPATION: Yes Soft to palpation Extremity: COMMON NORMALS: normal to inspection and full ROM Neuro: COMMON NORMALS: patient oriented x3, moves all extremities and no focal motor deficits Psych: COMMON NORMALS: mental status grossly normal, Normal thought process present and cooperative THOUGHT PROCESS: Normal thought process present Skin: COMMON NORMALS: no rashes or lesions noted and no wounds GENERAL SKIN EXAM: no rashes or lesions noted Course Vital Signs: Vital signs: Vital Signs Temperature 98.1 F 11/28/24 14:43 Pulse Rate 64 11/28/24 14:43 Respiratory Rate 18 11/28/24 14:43 Blood Pressure 160/90 11/28/24 14:43 Pulse Oximetry 96 11/28/24 14:43 Oxygen Delivery Me thod Room Air 11/28/24 14:43 MDM - General Adult Medical Decision Making Patient presents here with diarrhea she has been well-appearing here blood works normal abdominal exam is benign. Will refer her back to Dr. Kramer she states she wants to see Dr. Kramer now instead of going to GI in [place] she is return if worsening she understands agrees to plan Lab Data I reviewed the patient's lab results. 11/28/24 14:50 11/28/24 14:50 Laboratory Results WBC 7.81 10^3/uL (3.29-11.43) 11/28/24 14:50 RBC 4.54 10^6/uL (3.85-5.65) 11/28/24 14:50 Hgb 12.40 g/dL (11.27-16.99) 11/28/24 14:50 Hct 39.2 % (36-47) 11/28/24 14:50 MCV 86.3 fl (85-98) 11/28/24 14:50 MCH 27.3 pg (27-33) 11/28/24 14:50 MCHC 31.6 g/dL (30-55) 11/28/24 14:50 RDW 13.3 % (12.1-15.1) 11/28/24 14:50 Plt Count 301 10^3/cmm (157-399) 11/28/24 14:50 MPV 9.5 fL (7.4-10.4) 11/28/24 14:50 Neut % (Auto) 53.7 % 11/28/24 14:50 Lymph % (Auto) 37.4 % 11/28/24 14:50 Dolores % (Auto) 7.0 % 11/28/24 14:50 Eos % (Auto) 1.0 % 11/28/24 14:50 Baso % (Auto) 0.6 % 11/28/24 14:50 Neut # (Auto) 4.19 10^3/uL (1.8-7.7) 11/28/24 14:50 Lymph # (Auto) 2.9 10^3/uL (0.8-4.8) 11/28/24 14:50 Dolores # (Auto) 0.6 10^3/uL (0.2-0.9) 11/28/24 14:50 Eos # (Auto) 0.1 10^3/uL (0.0-0.8) 11/28/24 14:50 Baso # (Auto) 0.1 10^3/uL (0.0-0.1) 11/28/24 14:50 Nucleated RBC % (auto) 0 % 11/28/24 14:50 Nucleated RBCs # 0.0 /100WBC 11/28/24 14:50 Sodium 139 mmol/L (136-145) 11/28/24 14:50 Potassium 4.1 mmol/L (3.5-5.1) 11/28/24 14:50 Chloride 104 mmol/L (98-107) 11/28/24 14:50 Carbon Dioxide 24 mmol/L (22-29) 11/28/24 14:50 Anion Gap 15.1 (5-19) 11/28/24 14:50 BUN 22 mg/dL (8-23) 11/28/24 14:50 Creatinine 0.8 mg/dL (0.5-0.9) 11/28/24 14:50 GFR Calculation 72.2 mL/min (90-130) L 11/28/24 14:50 Glucose 97 mg/dL (65-115) 11/28/24 14:50 Calculated Osmolality 291 mOsm/kg (285-295) 11/28/24 14:50 Calcium 9.0 mg/dL (8.5-10.5) 11/28/24 14:50 Total Bilirubin 0.2 mg/dL (0.15-1.2) 11/28/24 14:50 AST 10 U/L (0-32) 11/28/24 14:50 ALT 9 U/L (0-33) 11/28/24 14:50 Alkaline Phosphatase 138 U/L (35-105) H 11/28/24 14:50 Total Protein 7.6 g/dL (6.6-8.7) 11/28/24 14:50 Albumin 4.2 g/dL (3.5-5.2) 11/28/24 14:50 Globulin 3.4 g/dL (1.3-4.6) 11/28/24 14:50 Lipase 34 U/L (13-60) 11/28/24 14:50 No radiology studies performed this visit Discharge Plan Discharge Patient Disposition: Home Clinical Impression: Diarrhea Condition: Stable Prescriptions: No Action sertraline 25 mg tablet 25 mg PO DAILY Qty: 30 3RF fluticasone propionate [Flonase Allergy Relief] 50 mcg/actuation spray,suspension 2 spray intranasal DAILY Qty: 16 0RF Rx Instructions: administer into each nostril lithium carbonate 300 mg tablet extended release 300 mg PO DAILY Qty: 30 3RF potassium chloride 10 mEq capsule, extended release 10 meq PO DAILY sumatriptan succinate 50 mg tablet 50 mg PO . DIRECTED MDD 4 tabs PRN (Reason: Migraine Headache) omeprazole 40 mg capsule,delayed release(DR/EC) 40 mg PO DAILY levothyroxine 25 mcg tablet 25 mcg PO DAILY carbamazepine 200 mg tablet 200 mg PO TID hydrochlorothiazide 25 mg tablet 25 mg PO DAILY propranolol 20 mg tablet 20 mg PO BID loratadine 10 mg tablet 10 mg PO DAILY PRN (Reason: Itching) ondansetron 4 mg tablet,disintegrating 4 mg PO Q8H PRN (Reason: nausea and vomiting) Qty: 15 0RF Discharge Orders: Discharge ED (Routine); Ordered 11/28/24 Ordered By: Rosi Sargent Referrals: Jose Kramer MD [Physician, General Surgery] - 4-7 days Viktoriya Smith FNP [Primary Care Provider, Nurse Practitioner] Discharge Diet: Advance as tolerated Discharge Activity: Resume usual activity Patient Instructions: Diarrhea - Adult Print Language: Bermudian Coding Level of Care Code ED Lime Vat Tender for Demarco Greene
[2024-11-28 14:55] LABS: Hematocrit 39.2 % (36-47); Hemoglobin 12.40 g/dL (11.27-16.99); Mean Corpuscular HGB Conc 31.6 g/dL (30-55); Mean Corpuscular Hemoglobin 27.3 pg (27-33); Mean Corpuscular Volume 86.3 fl (85-98); Nucleated Red Blood Cells % 0 %; Platelet Count 301 10^3/cmm (157-399); Red Blood Count 4.54 10^6/uL (3.85-5.65); White Blood Count 7.81 10^3/uL (3.29-11.43)
[2024-11-28 15:14] LABS: Alanine Aminotransferase 9 U/L (0-33); Albumin Level 4.2 g/dL (3.5-5.2); Alkaline Phosphatase 138 U/L (35-105); Anion Gap 15.1 (5-19); Aspartate Amino Transferase 10 U/L (0-32); Blood Urea Nitrogen 22 mg/dL (8-23); Calcium 9.0 mg/dL (8.5-10.5); Carbon Dioxide 24 mmol/L (22-29); Chloride 104 mmol/L (98-107); Creatinine Clr Calc Pharmacy 74.7373; Globulin 3.4 g/dL (1.3-4.6); Glucose 97 mg/dL (65-115); Lipase 34 U/L (13-60); Osmolality Calculated 291 mOsm/kg (285-295); Potassium 4.1 mmol/L (3.5-5.1); Sodium 139 mmol/L (136-145); Total Protein 7.6 g/dL (6.6-8.7)
[2024-11-28 15:50] VITALS: BP 141/80; PULSE 64; O2SAT 97
== END 2024-11-28 15:51 | disposition home or self-care (01) ==
PROVIDERS: Emergency Provider Emergency Medicine; PCP Nurse Practitioner
DX: R19.7 Diarrhea, unspecified (principal); K59.00 Constipation, unspecified
CPT/HCPCS: 36415; 80053; 83690; 85025; 96360; 99284; J7030; J9999

== ENCOUNTER → 2024-11-30 10:06 | Outpatient (BNVA) | payer OTHER, SELFPAY ==
[2024-07-14 14:25] VITALS: BP 149/90; BMI 36.0
== END ==
PROVIDERS: PCP Nurse Practitioner; Visit Provider Nurse Practitioner
DX: R19.7 Diarrhea, unspecified (principal)
CPT/HCPCS: 87493

== ENCOUNTER 2024-12-09 15:39 | Inpatient (IN) | payer OTHER, MEDICAID, SELFPAY ==
[2024-07-14 14:25] VITALS: BP 149/90; BMI 36.0
[2024-12-09 15:40] VITALS: BP 136/91; PULSE 56; RESP 16; TEMP 36.8; O2SAT 99; BMI 28.3
--- NOTE | 2024-12-09 15:59 | ECG_ITS ---
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 Measurements Intervals [place] Rate: 53 P: 45 WI: 159 QRS: -8 QRSD: 96 T: 38 QT: 418 QTc: 396 Interpretive Statements SINUS BRADYCARDIA Compared to ECG 04/25/2022 18:33:08 Sinus rhythm no longer present Myocardial infarct finding no longer present Electronically Signed On 12-11-2024 20:25:27 CDT by Olesya Pitts M.D. [email or web address]
--- NOTE | 2024-12-09 16:01 | W.ED.PSYCHS ---
HPI - Psych General: Chief Complaint: Psychiatric Symptoms Stated Complaint: mhe Time Seen by Provider: 12/09/24 15:47 History of Present Illness: Patient is 64-year-old female with history of depression, anxiety, states compliance to medications carbamazepine, lithium, presents to the emergency room due to suicide intent. Patient has a plan to overdose on her medications. Last psychiatric admission was at [facility], 6 months ago. She states the stressors are secondary to apartment complex. Denies illicit drugs. States that she is having a hard time eating, and sleeping. Associated symptoms: Reports depression and suicidal ideation Related Data Home Medications ?Medication ?Instructions ?Recorded ?Confirmed carbamazepine 200 mg tablet 200 mg PO TID 04/25/22 12/09/24 hydrochlorothiazide 25 mg tablet 25 mg PO DAILY 04/25/22 12/09/24 loratadine 10 mg tablet 10 mg PO DAILY PRN Itching 04/25/22 12/09/24 omeprazole 40 mg capsule,delayed 40 mg PO DAILY 04/25/22 12/09/24 release potassium chloride 10 mEq 10 meq PO DAILY 04/25/22 12/09/24 capsule,extended release propranolol 20 mg tablet 20 mg PO BID 04/25/22 12/09/24 sumatriptan succinate 50 mg tablet 50 mg PO . DIRECTED PRN Migraine 04/25/22 12/09/24 Headache lamotrigine 25 mg tablet 25 mg PO BID 12/09/24 12/09/24 levothyroxine 50 mcg tablet 50 mcg PO DAILY 12/09/24 12/09/24 Previous Rx's ?Medication ?Instructions ?Recorded ondansetron 4 mg disintegrating 4 mg PO Q8H PRN nausea and 07/13/22 tablet vomiting #15 tabs lithium carbonate 300 mg 300 mg PO DAILY #30 tabs 10/05/24 tablet,extended release sertraline 25 mg tablet 25 mg PO DAILY #30 tabs 10/27/24 Allergies Allergy/AdvReac Type Severity Reaction Status Date / Time Penicillins Allergy ADR-Gastrointestinal Verified 11/26/24 07:46 Upset Review of Systems Const: Denies: fever(s), chills, body aches or change in appetite ENMT: Denies: throat pain or dental pain Card: Denies: chest pain Resp: Denies: dyspnea GI: Reports: abdominal pain and diarrhea; Denies: nausea or vomiting : Denies: dysuria Musc: Denies: neck pain or back pain Skin/Breast: Denies: rash Neuro: Denies: headache(s) Psych: Reports: anxiety, depression and suicidal ideation PFSH ED PFSH: Medical History (Updated 12/09/24 @ 18:05 by WILLIAM Rojas) Psychiatric care Chronic pruritus Social History Smoking and tobacco/nicotine status: former use of tobacco/nicotine Alcohol intake: former Substance/Drug Use: never Adopted: No Caregiver/support person: No Lives independently: Yes Housing: Apartment Marital status: / Number of children: 4 Number of grandchildren: 5 Highest education level completed: High School Graduate service: No Current occupational status: unemployed Current occupational exposures/hazards: No Pets and animals: No Leisure activites: other Leisure activities details: watch TV drawing Sexually active: No Do you think of yourself as: Straight/Heterosexual Current gender identity: Female Ekaterina/Catholic: Qu[employer] Special ekaterina needs: No Agree to transfusion: Yes Female Reproductive History: Para: 2 Spontaneous abortions: No Physical Exam Const: COMMON NORMALS: no acute distress, patient oriented x3 and healthy appearing GENERAL APPEARANCE: well kempt HENMT: COMMON NORMALS: normocephalic and atraumatic HEAD & SCALP: normocephalic and atraumatic Eye: COMMON NORMALS: conjunctivae normal CONJUNCTIVA: Yes conjunctivae normal Neck/C-Spine: COMMON NORMALS: full ROM and supple Chest: COMMONS NORMALS: normal inspection of the chest and normal palpation of entire chest wall Resp: COMMON NORMALS: normal respiratory effort, No retractions, No use of accessory muscles and clear to auscultation bilaterally AUSCULTATION: clear to auscultation bilaterally Cardio: COMMON NORMALS: regular rate, regular rhythm and No murmurs present (Cardio) RATE: regular rate RHYTHM: regular rhythm GI: COMMON NORMALS: Normal to inspection, nondistended, normoactive bowel sounds present, Soft to palpation, non-tender and no masses PALPATION: Yes Soft to palpation Extremity: COMMON NORMALS: normal to inspection and full ROM Neuro: COMMON NORMALS: patient oriented x3, moves all extremities and no focal motor deficits Psych: COMMON NORMALS: mental status grossly normal and cooperative APPEARANCE: Yes well kempt ATTITUDE: Yes agitated ACTIVITY/MOTOR BEHAVIOR: Yes appropriate eye contact and Yes fidgeting SPEECH: Yes Pressured speech present MOOD & AFFECT: Yes depressed mood and Yes sad THOUGHT PROCESS: racing thoughts THOUGHT CONTENT: Yes Suicidality present Skin: COMMON NORMALS: no rashes or lesions noted and no wounds GENERAL SKIN EXAM: no rashes or lesions noted Course Reevaluation(s): Reevaluation #1: Improved after Zyprexa. Consultations: Consultation #1: [id number]: Contacted Dr. Colunga Vital Signs: Vital signs: Vital Signs Temperature 98.1 F 12/09/24 20:23 Pulse Rate 63 12/09/24 20:23 Respiratory Rate 18 12/09/24 20:23 Blood Pressure 154/84 12/09/24 20:23 Pulse Oximetry 96 12/09/24 20:23 Oxygen Delivery Me thod Room Air 12/09/24 20:23 MDM - Psych Medical Decision Making Patient is 64-year-old female with history of depression, presents to the emergency room wanting admission for suicide ideation. She has a plan to kill herself by overdosing on all of her pills. [place] level is very low, subtherapeutic, indicating the question if she is being compliant as noted. Carbamazepine level is in therapeutic range. Will call Dr. Colunga for admission to psychiatric unit. Affidavit has been filled out, although patient is going voluntarily. Dr. Colunga accepted the patient. Patient feels somewhat improved after Zyprexa. Will transfer to the neuropsychiatric unit. Medical Records I reviewed the patient's medical records. Lab Data I reviewed the patient's lab results. 12/09/24 16:18 12/09/24 16:18 Laboratory Results WBC 8.31 10^3/uL (3.29-11.43) 12/09/24 16:18 RBC 4.55 10^6/uL (3.85-5.65) 12/09/24 16:18 Hgb 12.60 g/dL (11.27-16.99) 12/09/24 16:18 Hct 40.7 % (36-47) 12/09/24 16:18 MCV 89.5 fl (85-98) 12/09/24 16:18 MCH 27.7 pg (27-33) 12/09/24 16:18 MCHC 31.0 g/dL (30-55) 12/09/24 16:18 RDW 13.1 % (12.1-15.1) 12/09/24 16:18 Plt Count 266 10^3/cmm (157-399) 12/09/24 16:18 MPV 9.7 fL (7.4-10.4) 12/09/24 16:18 Neut % (Auto) 46.2 % 12/09/24 16:18 Lymph % (Auto) 43.9 % 12/09/24 16:18 [place] % (Auto) 7.5 % 12/09/24 16:18 Eos % (Auto) 1.6 % 12/09/24 16:18 Baso % (Auto) 0.6 % 12/09/24 16:18 Neut # (Auto) 3.84 10^3/uL (1.8-7.7) 12/09/24 16:18 Lymph # (Auto) 3.7 10^3/uL (0.8-4.8) 12/09/24 16:18 [place] # (Auto) 0.6 10^3/uL (0.2-0.9) 12/09/24 16:18 Eos # (Auto) 0.1 10^3/uL (0.0-0.8) 12/09/24 16:18 Baso # (Auto) 0.1 10^3/uL (0.0-0.1) 12/09/24 16:18 Nucleated RBC % (auto) 0 % 12/09/24 16:18 Nucleated RBCs # 0.0 /100WBC 12/09/24 16:18 Sodium 141 mmol/L (136-145) 12/09/24 16:18 Potassium 4.2 mmol/L (3.5-5.1) 12/09/24 16:18 Chloride 104 mmol/L (98-107) 12/09/24 16:18 Carbon Dioxide 23 mmol/L (22-29) 12/09/24 16:18 Anion Gap 18.2 (5-19) 12/09/24 16:18 BUN 16 mg/dL (8-23) 12/09/24 16:18 Creatinine 1.0 mg/dL (0.5-0.9) H 12/09/24 16:18 GFR Calculation 55.8 mL/min (90-130) L 12/09/24 16:18 Glucose 90 mg/dL (65-115) 12/09/24 16:18 Calculated Osmolality 293 mOsm/kg (285-295) 12/09/24 16:18 Calcium 9.0 mg/dL (8.5-10.5) 12/09/24 16:18 Total Bilirubin 0.2 mg/dL (0.15-1.2) 12/09/24 16:18 AST 10 U/L (0-32) 12/09/24 16:18 ALT 10 U/L (0-33) 12/09/24 16:18 Alkaline Phosphatase 144 U/L (35-105) H 12/09/24 16:18 Total Protein 7.4 g/dL (6.6-8.7) 12/09/24 16:18 Albumin 4.3 g/dL (3.5-5.2) 12/09/24 16:18 Globulin 3.1 g/dL (1.3-4.6) 12/09/24 16:18 TSH 2.08 uIU/mL (0.27-4.20) 12/09/24 16:18 Urine Color Yellow (Yellow) 12/09/24 16:47 Urine Appearance Cloudy (CLEAR) A 12/09/24 16:47 Urine pH 5.5 (5-7) 12/09/24 16:47 Ur Specific [place] 1.022 (1.005-1.030) 12/09/24 16:47 Urine Protein Negative (Negative) 12/09/24 16:47 Urine Glucose (UA) Negative (Normal) 12/09/24 16:47 Urine Ketones Trace (Negative) 12/09/24 16:47 Urine Blood Negative (Negative) 12/09/24 16:47 Urine Nitrate Negative (Negative) 12/09/24 16:47 Urine Bilirubin Negative (Negative) 12/09/24 16:47 Urine Urobilinogen 1.0 mg/dL (Negative) 12/09/24 16:47 Ur Leukocyte Esterase 2+ (Negative) A 12/09/24 16:47 Urine RBC 0-2 /hpf (0-2) 12/09/24 16:47 Urine WBC 21-50 /hpf (0-5) H 12/09/24 16:47 Ur Squamous Epith Cells 21-50 /hpf (0-5) H 12/09/24 16:47 Amorphous Sediment Not Reportable 12/09/24 16:47 Urine Bacteria 1+ /hpf (NONE) H 12/09/24 16:47 Hyaline Casts 0.81 /lpf 12/09/24 16:47 Salicylates < 0.3 mg/dL (3-10) L 12/09/24 16:18 Urine Opiates Screen Negative ng/mL (Negative) 12/09/24 16:47 Acetaminophen < 5.0 ug/mL (10-30) L 12/09/24 16:18 Ur Barbiturates Screen Negative ng/mL (Negative) 12/09/24 16:47 Carbamazepine 8.5 ug/mL (4.0-12.0) 12/09/24 16:18 Ur Phencyclidine Scrn Negative ng/mL (Negative) 12/09/24 16:47 Ur Amphetamines Screen Negative ng/mL (Negative) 12/09/24 16:47 U Benzodiazepines Scrn Negative ng/mL (Negative) 12/09/24 16:47 [place] 0.4 mmol/L (0.6-1.2) L 12/09/24 16:18 Urine Cocaine Screen Negative ng/mL (Negative) 12/09/24 16:47 U Marijuana (THC) Screen Negative ng/mL (Negative) 12/09/24 16:47 Ethyl Alcohol < 10 mg/dL (0-10) 12/09/24 16:18 All radiology interpretation(s) finalized by discharge EKG Data EKG 1: Interpretation: Sinus bradycardia with rate of 53, no ST segment elevation, left axis, [place] 159 ms, QTc 402 ms Discharge Plan Discharge Patient Disposition: Xfer Psychiatric Hosp Clinical Impression: Suicidal ideation Condition: Stable Discharge Diet: Usual diet Discharge Activity: Resume usual activity Coding Level of Care Code ED [employer] Pourer for Demarco Greene
[2024-12-09 16:24] LABS: Hematocrit 40.7 % (36-47); Hemoglobin 12.60 g/dL (11.27-16.99); Mean Corpuscular HGB Conc 31.0 g/dL (30-55); Mean Corpuscular Hemoglobin 27.7 pg (27-33); Mean Corpuscular Volume 89.5 fl (85-98); Nucleated Red Blood Cells % 0 %; Platelet Count 266 10^3/cmm (157-399); Red Blood Count 4.55 10^6/uL (3.85-5.65); White Blood Count 8.31 10^3/uL (3.29-11.43)
[2024-12-09 16:40] LABS: Carbamazepine Tegretol 8.5 ug/mL (4.0-12.0)
[2024-12-09 16:46] LABS: Lithium 0.4 mmol/L (0.6-1.2)
[2024-12-09 16:51] LABS: Alanine Aminotransferase 10 U/L (0-33); Albumin Level 4.3 g/dL (3.5-5.2); Alkaline Phosphatase 144 U/L (35-105); Anion Gap 18.2 (5-19); Aspartate Amino Transferase 10 U/L (0-32); Blood Urea Nitrogen 16 mg/dL (8-23); Calcium 9.0 mg/dL (8.5-10.5); Carbon Dioxide 23 mmol/L (22-29); Chloride 104 mmol/L (98-107); Creatinine Clr Calc Pharmacy 54.2550; Globulin 3.1 g/dL (1.3-4.6); Glucose 90 mg/dL (65-115); Osmolality Calculated 293 mOsm/kg (285-295); Potassium 4.2 mmol/L (3.5-5.1); Sodium 141 mmol/L (136-145); Thyroid Stimulating Hormone 2.08 uIU/mL (0.27-4.20); Total Protein 7.4 g/dL (6.6-8.7)
[2024-12-09 16:57] LABS: Acetaminophen < 5.0 ug/mL (10-30); Alcohol Level < 10 mg/dL (0-10); Salicylate < 0.3 mg/dL (3-10)
[2024-12-09 17:01] LABS: Glucose Urine UA Negative (Normal); Nitrate Urine Negative (Negative); Specific Gravity, Urine 1.022 (1.005-1.030)
[2024-12-09 17:04] LABS: Add Urine Microscopic? YES
[2024-12-09 18:13] LABS: PCP Screen Urine Negative (Negative)
[2024-12-09 20:23] VITALS: BP 154/84; PULSE 63; RESP 18; TEMP 36.7; O2SAT 96
[2024-12-09 22:00] VITALS: BP 154/84; PULSE 63; RESP 18; TEMP 36.7; O2SAT 96
[2024-12-10 06:00] VITALS: BP 111/61; PULSE 67; RESP 18; TEMP 37.1; O2SAT 95
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
[2024-12-10 14:00] VITALS: BP 91/65; PULSE 63; RESP 14; TEMP 36.9; O2SAT 98
[2024-12-10 17:15] VITALS: BP 107/72
[2024-12-10 21:16] LABS: Glucose Urine UA Negative (Normal); Nitrate Urine Negative (Negative); Specific Gravity, Urine 1.017 (1.005-1.030)
[2024-12-10 21:18] LABS: Add Urine Microscopic? YES
[2024-12-10 22:00] VITALS: BP 108/58; PULSE 62; RESP 18; TEMP 37.1; O2SAT 94
[2024-12-11] VITALS (8 sets, daily range): BP systolic 104–141; BP diastolic 64–84; PULSE 39–86; RESP 14–20; TEMP 36.4–36.6; O2SAT 96–98
--- NOTE | 2024-12-11 11:10 | XRR_ITS ---
PROCEDURE INFORMATION: Exam: XR Left Wrist Exam date and time: 12/11/2024 11:35 AM Age: 64 years old Clinical indication: Pain; Wrist; Left; Additional info: Lt wrist pain/deformity post fall TECHNIQUE: Imaging protocol: Radiologic exam of the left wrist. Views: 3 or more views. COMPARISON: CR XR wrist LT min 3V* [id number] 09/04/2018 4:19 PM FINDINGS: Bones/joints: Comminuted fracture of the distal radius is present with some overlapping of fragments. Fracture extends into the joint space. Transversely oriented fracture of the distal ulna is also noted. Ulnar styloid fracture is also present. Soft tissues: There is soft tissue swelling surrounding the wrist. XR/XR wrist LT min 3V* [id number] IMPRESSION: Comminuted fractures of the distal radius and ulna .
--- NOTE | 2024-12-11 11:34 | PC.NURSE ---
nuclear powerplant supervisor () responded to a rapid response on the south side of NPU where patient was found to be sitting in the hallway on her bottom. It was reported to consumer loan underwriter that patient had experienced bradycardia with a heart rate in the 40s. Dr Colunga notified per NPU nursing staff. Patient assisted to wheelchair by nursing staff and wheeled to her room for an EKG. Follow up Xrays ordered for patient's left wrist.
--- NOTE | 2024-12-11 11:35 | ECG_ITS ---
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 Measurements Intervals [place] Rate: 42 P: 66 [place]: 156 QRS: 39 QRSD: 98 T: 64 QT: 451 QTc: 378 Interpretive Statements SINUS BRADYCARDIA Compared to ECG 12/09/2024 16:04:28 No significant changes Electronically Signed On 12-11-2024 13:02:32 CDT by Nikolas Calderon M.D. [email or web address]
[2024-12-11 11:42] LABS: Hematocrit 43.0 % (36-47); Hemoglobin 13.40 g/dL (11.27-16.99); Mean Corpuscular HGB Conc 31.2 g/dL (30-55); Mean Corpuscular Hemoglobin 28.1 pg (27-33); Mean Corpuscular Volume 90.1 fl (85-98); Nucleated Red Blood Cells % 0 %; Platelet Count 304 10^3/cmm (157-399); Red Blood Count 4.77 10^6/uL (3.85-5.65); White Blood Count 8.99 10^3/uL (3.29-11.43)
--- NOTE | 2024-12-11 11:52 | PM.CONSULT ---
Providers/Reason For Consult Consulting Physician/Specialty*: Janna Ayala MD/ Hospitalist Reason for Consult*: Rapid response for syncope Requesting Physician: Romaine Colunga MD Attending Physician: Romaine Colunga MD History of Present Illness History of Present Illness Coral Rangel is a 64 year old female currently admitted to the neuropsychiatry unit after checking involuntarily for suicidal ideation. She got up at the unit today to get some water, felt lightheaded and fell to the floor. Did not lose consciousness. She tried to break her fall with her hands and in the process has suffered a fracture of the left wrist. Patient denies any chest pain dyspnea palpitations. She states she has a history of having recurrent falls at home however no cause has been established. She did not lose consciousness. There were no tonic-clonic movements. Patient was noted to be bradycardic during the event with a heart rate of 30 bpm. Subsequently at the time of this assessment patient has a heart rate of 40 bpm. EKG is showing sinus bradycardia. Review of chart shows that patient has been on propranolol 20 mg twice daily during this admission with last dose received at 8 AM today. She denies any known History of coronary artery disease or valvular disease. She denies feeling short of breath. No nausea or vomiting. No focal motor or neurological deficits afterwards. Review of Systems General: Reports: 10 or more systems reviewed and unremarkable except in HPI and below Const: Denies: fever(s), chills or body aches Eyes: Denies: change in vision, blurry vision or photophobia ENMT: Reports: hoarseness; Denies: throat pain, enlarged tonsils, odynophagia or nasal congestion Card: Denies: chest pain, palpitations, irregular heart rhythm, edema, swelling of feet/ankles, lightheadedness, pre-syncope, dyspnea on exertion or orthopnea Resp: Denies: dyspnea, productive cough, non-productive cough, wheezing, stridor, pain on inspiration, change in phlegm color, hemoptysis or chest congestion GI: Denies: abdominal pain, nausea, vomiting, hematemesis, coffee ground emesis, dysphagia, heartburn, diarrhea, constipation, GI cramping, change in stool character, hematochezia or melena : Denies: flank pain, difficulty voiding, dysuria, urinary frequency, urinary urgency, urinary hesitancy or hematuria Musc: Denies: neck pain, back pain, extremity pain, joint swelling, joint warmth or deformity Neuro: Denies: headache(s), numbness in extremities, weakness in extremities, sensory changes, difficulty walking, frequent falls, dizziness, vertigo, behavioral changes, Slurred speech present or seizure-like activity Psych: Denies: anxiety, depression, suicidal ideation or homicidal ideation Endo: Denies: polyuria, polydipsia, tired all the time, cold intolerance or hot flashes [place]/Lymph: Denies: easy bruising or easy bleeding Medications/Allergies Home Medications ?Medication ?Instructions ?Recorded ?Confirmed ?Last Taken ?Type carbamazepine 200 mg tablet 200 mg PO TID 04/25/22 12/09/24 12/09/24 13:00 History 200 mg hydrochlorothiazide 25 mg tablet 25 mg PO DAILY 04/25/22 12/09/24 12/09/24 09:00 History loratadine 10 mg tablet 10 mg PO DAILY PRN Itching 04/25/22 12/09/24 Unknown History omeprazole 40 mg capsule,delayed 40 mg PO DAILY 04/25/22 12/09/24 12/09/24 09:00 History release 40 mg potassium chloride 10 mEq 10 meq PO DAILY 04/25/22 12/09/24 1 Day Ago History capsule,extended release ~12/08/24 10 meq propranolol 20 mg tablet 20 mg PO BID 04/25/22 12/09/24 1 Day Ago History ~12/08/24 20 mg sumatriptan succinate 50 mg tablet 50 mg PO . DIRECTED PRN Migraine 04/25/22 12/09/24 Unknown History Headache ondansetron 4 mg disintegrating 4 mg PO Q8H PRN nausea and 07/13/22 12/09/24 Unknown Rx tablet vomiting #15 tabs lithium carbonate 300 mg 300 mg PO DAILY #30 tabs 10/05/24 12/09/24 12/09/24 09:00 Rx tablet,extended release 300 mg sertraline 25 mg tablet 25 mg PO DAILY #30 tabs 10/27/24 12/09/24 1 Day Ago Rx ~12/08/24 25 mg lamotrigine 25 mg tablet 25 mg PO BID 12/09/24 12/09/24 Unknown History levothyroxine 50 mcg tablet 50 mcg PO DAILY 0912/09/24 12/09/24 08:00 History Allergies Allergy/AdvReac Type Severity Reaction Status Date / Time Penicillins Allergy ADR-Gastrointestinal Verified 11/26/24 07:46 Upset Current Medications Generic Name Dose Route Start Last Admin Trade Name Freq PRN Reason Stop Dose Admin Acetaminophen 650 mg 12/09/24 20:22 12/11/24 11:24 Acetaminophen 325 Mg Tablet PO 650 mg Q4H PRN Administration MILD PAIN Carbamazepine 200 mg 12/09/24 21:24 12/11/24 08:15 Carbamazepine 200 Mg Tablet PO 200 mg TID ENMANUEL Administration Hydrochlorothiazide 25 mg 12/10/24 09:00 12/11/24 08:15 Hydrochlorothiazide 25 Mg Tablet PO 25 mg DAILY ENMANUEL Administration Hydroxyzine [place] 50 mg 12/09/24 20:22 12/10/24 21:25 Hydroxyzine 25 Mg Capsule PO 50 mg Q6H PRN Administration ANXIETY Lamotrigine 25 mg 12/10/24 09:00 12/11/24 08:15 Lamotrigine 25 Mg Tablet PO 25 mg BID ENMANUEL Administration Levothyroxine Sodium 50 mcg 12/10/24 09:00 12/11/24 08:15 Levothyroxine 50 Mcg Tablet PO 50 mcg DAILY ENMANUEL Administration [place] Carbonate 300 mg 12/10/24 09:00 12/11/24 08:15 [place] Carbonate Er 300 Mg Tablet PO 300 mg On Hold: 12/11/24 08:58 DAILY ENMANUEL Administration Comment: [place] level @ 0830 Pantoprazole Sodium 40 mg 12/10/24 09:00 12/11/24 08:[address] 40 Mg Tablet PO 40 mg DAILY ENMANUEL Administration Potassium Chloride 10 meq 12/10/24 09:00 12/11/24 08:15 Potassium Chloride Er 10 Meq Tablet PO 10 meq DAILY ENMANUEL Administration Propranolol HCl 20 mg 12/10/24 09:00 12/11/24 08:15 Propranolol 20 Mg Tablet PO 20 mg BID ENMANUEL Administration Sertraline HCl 75 mg 12/11/24 09:00 12/11/24 10:50 Sertraline 50 Mg Tablet PO Not Given DAILY ENMANUEL Trazodone HCl 50 mg 12/09/24 20:22 12/10/24 21:25 Trazodone 50 Mg Tablet PO 50 mg BEDTIME PRN Administration SLEEP PFSH Acute PFSH: Medical History Psychiatric care Chronic pruritus Social History Smoking and tobacco/nicotine status: former use of tobacco/nicotine Alcohol intake: former Substance/Drug Use: never Adopted: No Caregiver/support person: No Lives independently: Yes Housing: Apartment Marital status: / Number of children: 4 Number of grandchildren: 5 Highest education level completed: High School Graduate service: No Current occupational status: unemployed Current occupational exposures/hazards: No Pets and animals: No Leisure activites: other Leisure activities details: watch TV drawing Sexually active: No Do you think of yourself as: Straight/Heterosexual Current gender identity: Female Ekaterina/Synagogue: [employer] Special ekaterina needs: No Agree to transfusion: Yes Female Reproductive History: Para: 2 Spontaneous abortions: No Vitals/I&O/Wt Last Vital Signs Temp 97.8 F 12/11/24 06:00 Pulse 63 12/11/24 06:00 Resp 17 12/11/24 06:00 BP 114/79 12/11/24 06:00 Pulse Ox 96 12/11/24 06:00 O2 Del Method Room Air 12/11/24 06:00 Weight last 48 hrs Weight 72.575 kg Physical Exam Narrative: General: No acute distress, AO x3 HEENT: PERRLA, pupils bilaterally equal and reactive, pallors not present Chest: Normal vesicular breath sounds, no added sounds, equal good air entry bilaterally CVS: S1-S2 regular, no murmurs, no tachycardia, no gallops, no rubs Abdomen: Soft, nontender, no organomegaly, bowel sounds present Neuro: No focal deficits, no facial deformity, AO x3, power 5/5 in all limbs Extremities: left wrist deformity noted , painful to touch Data 12/11/24 11:27 12/11/24 11:27 Micro: Microbiology 12/09/24 16:47 Urine Culture - Final Urine,Clean Catch Other data: Radiology Impressions Wrist X-Ray 12/11/24 11:10 IMPRESSION: Comminuted fractures of the distal radius and ulna . Laboratory Results WBC 8.99 10^3/uL (3.29-11.43) 12/11/24 11:27 RBC 4.77 10^6/uL (3.85-5.65) 12/11/24 11:27 Hgb 13.40 g/dL (11.27-16.99) 12/11/24 11:27 Hct 43.0 % (36-47) 12/11/24 11:27 MCV 90.1 fl (85-98) 12/11/24 11: MCH 28.1 pg (27-33) 12/11/24 11:27 MCHC 31.2 g/dL (30-55) 12/11/24 11:27 RDW 13.0 % (12.1-15.1) 12/11/24 11:27 Plt Count 304 10^3/cmm (157-399) 12/11/24 11:27 MPV 9.7 fL (7.4-10.4) 12/11/24 11:27 Neut % (Auto) 60.3 % 12/11/24 11:27 Lymph % (Auto) 30.7 % 12/11/24 11:27 Graves % (Auto) 6.7 % 12/11/24 11:27 Eos % (Auto) 1.3 % 12/11/24 11:27 Baso % (Auto) 0.7 % 12/11/24 11:27 Neut # (Auto) 5.42 10^3/uL (1.8-7.7) 12/11/24 11:27 Lymph # (Auto) 2.8 10^3/uL (0.8-4.8) 12/11/24 11:27 Graves # (Auto) 0.6 10^3/uL (0.2-0.9) 12/11/24 11:27 Eos # (Auto) 0.1 10^3/uL (0.0-0.8) 12/11/24 11:27 Baso # (Auto) 0.1 10^3/uL (0.0-0.1) 12/11/24 11:27 Nucleated RBC % (auto) 0 % 12/11/24 11: Nucleated RBCs # 0.0 /100WBC 12/11/24 11:27 Sodium 141 mmol/L (136-145) 12/11/24 11:27 Potassium 4.5 mmol/L (3.5-5.1) 12/11/24 11:27 Chloride 103 mmol/L (98-107) 12/11/24 11:27 Carbon Dioxide 25 mmol/L (22-29) 12/11/24 11:27 Anion Gap 17.5 (5-19) 12/11/24 11:27 BUN 23 mg/dL (8-23) 12/11/24 11:27 Creatinine 1.0 mg/dL (0.5-0.9) H 12/11/24 11:27 GFR Calculation 55.8 mL/min (90-130) L 12/11/24 11:27 Glucose 105 mg/dL (65-115) 12/11/24 11:27 Calculated Osmolality 296 mOsm/kg (285-295) H 12/11/24 11:27 Calcium 9.3 mg/dL (8.5-10.5) 12/11/24 11:27 Total Bilirubin 0.2 mg/dL (0.15-1.2) 12/09/24 16:18 AST 10 U/L (0-32) 12/09/24 16:18 ALT 10 U/L (0-33) 12/09/24 16:18 Alkaline Phosphatase 144 U/L (35-105) H 12/09/24 16:18 Troponin T 5th Gen ng/L 10 ng/L (0-10) 12/11/24 11:27 Total Protein 7.4 g/dL (6.6-8.7) 12/09/24 16:18 Albumin 4.3 g/dL (3.5-5.2) 12/09/24 16:18 Globulin 3.1 g/dL (1.3-4.6) 12/09/24 16:18 TSH 1.95 uIU/mL (0.27-4.20) 12/11/24 11:27 Urine Color Yellow (Yellow) 12/10/24 19:53 Urine Appearance Cloudy (CLEAR) A 12/10/24 19:53 Urine pH 6.5 (5-7) 12/10/24 19:53 Ur Specific [place] 1.017 (1.005-1.030) 12/10/24 19:53 Urine Protein Negative (Negative) 12/10/24 19:53 Urine Glucose (UA) Negative (Normal) 12/10/24 19:53 Urine Ketones Negative (Negative) 12/10/24 19:53 Urine Blood Negative (Negative) 12/10/24 19:53 Urine Nitrate Negative (Negative) 12/10/24 19:53 Urine Bilirubin Negative (Negative) 12/10/24 19:53 Urine Urobilinogen 0.2 mg/dL (Negative) 12/10/24 19:53 Ur Leukocyte Esterase 2+ (Negative) A 12/10/24 19:53 Urine RBC 3-5 /hpf (0-2) 12/10/24 19:53 Urine WBC 11-20 /hpf (0-5) H 12/10/24 19:53 Ur Squamous Epith Cells 6-10 /hpf (0-5) 12/10/24 19:53 Amorphous Sediment Not Reportable 12/10/24 19:53 Urine Bacteria 3+ /hpf (NONE) H 12/10/24 19:53 Hyaline Casts 1.65 /lpf 12/10/24 19:53 Salicylates < 0.3 mg/dL (3-10) L 12/09/24 16:18 Urine Opiates Screen Negative ng/mL (Negative) 12/09/24 16:47 Acetaminophen < 5.0 ug/mL (10-30) L 12/09/24 16:18 Ur Barbiturates Screen Negative ng/mL (Negative) 12/09/24 16:47 Carbamazepine 8.5 ug/mL (4.0-12.0) 12/09/24 16:18 Ur Phencyclidine Scrn Negative ng/mL (Negative) 12/09/24 16:47 Ur Amphetamines Screen Negative ng/mL (Negative) 12/09/24 16:47 U Benzodiazepines Scrn Negative ng/mL (Negative) 12/09/24 16:47 [place] 0.4 mmol/L (0.6-1.2) L 12/09/24 16:18 Urine Cocaine Screen Negative ng/mL (Negative) 12/09/24 16:47 U Marijuana (THC) Screen Negative ng/mL (Negative) 12/09/24 16:47 Ethyl Alcohol < 10 mg/dL (0-10) 12/09/24 16:18 A&P Assessment and plan 1. Suicidal ideation: Patient admitted to general psychiatry unit for suicidal ideation voluntarily. Continue psychiatry care As recommended 2. Syncope: Syncopal episode today. Patient denies any dyspnea palpitations or vomiting. States she did very dizzy and lightheaded. At the time of events her heart rate was noted to be 30 bpm. At the time of this assessment patient's heart rate is 40 bpm, sinus bradycardia. Blood pressure is maintained today. No mental status changes. She is awake alert oriented. Likely syncope was related to bradycardia. Moved to cardiac stepdown. Continue close telemetry monitoring for any worsening. She currently has no neurological deficits. Do not believe this was a neurological event. 3. Sinus bradycardia: Sinus bradycardia, suspect related to beta-isiah use. Discontinue propranolol. Last dose given at 8 AM today. Monitor heart rate off the beta-blockers. Atropine 0.5 mg IV as needed if heart rate less than 35. May need to add dopamine infusion if remains persistently bradycardic. Check baseline troponin. Electrolytes potassium and magnesium noted to be within normal limits Check TSH. 4. Fracture of radius and ulna: Fracture of the radius and ulna related to fall on the left hand. Comminuted fracture of both bones noted. Wrist splint ordered. Orthopedic service to be consulted to assess for any surgical intervention. Plan: Dvt ppx: Low risk , patient is ambulatory Full code PDMP PDMP Reviewed: Not Reviewed Coding Level of Care Code Acute Code for Chg Fwd High MDM includes number and complexity of problems actively addressed during encounter, amount and/or complexity of data reviewed/ordered and described risk of complication, morbidity or mortality of management as documented Diagnoses Suicidal ideation R45.851 Syncope R55 Sinus bradycardia R00.1 Fracture of radius and ulna S52.90XA; S52.209A
[2024-12-11 12:05] LABS: Anion Gap 17.5 (5-19); Blood Urea Nitrogen 23 mg/dL (8-23); Calcium 9.3 mg/dL (8.5-10.5); Carbon Dioxide 25 mmol/L (22-29); Chloride 103 mmol/L (98-107); Creatinine Clr Calc Pharmacy 54.2550; Glucose 105 mg/dL (65-115); Osmolality Calculated 296 mOsm/kg (285-295); Potassium 4.5 mmol/L (3.5-5.1); Sodium 141 mmol/L (136-145)
[2024-12-11 12:38] LABS: Troponin T (5th) Once 10 ng/L (0-10)
--- NOTE | 2024-12-11 13:04 | USCV_ITS ---
Coral Rangel Age: 64 Gender: F : 1960 Exam Date: 12/11/2024 13:41 Ordering Phys: Janna Ayala MD Technologist: Yosef Vann Exam Location: [facility] [place] Indication: syncope BP: 141 / 83 HR: 56 Rhythm: Sinus Technical Quality: Adequate MEASUREMENTS (Male / Female) Normal Values 2D ECHO LV Diastolic Diameter PLAX 4.6 cm 4.2 - 5.9 / 3.9 - 5.3 cm IVS Diastolic Thickness 0.7 cm 0.6 - 1.0 / 0.6 - 0.9 cm IVS Systolic Thickness 1.3 cm LVPW Diastolic Thickness 1.2 cm 0.6 - 1.0 / 0.6 - 0.9 cm LVPW Systolic Thickness 1.4 cm LVOT Diameter 2.0 cm LV Ejection Fraction 2D Teich 65.5 % LV Ejection Fraction MOD 4C 73.7 % LV Ejection Fraction MOD 2C 60.7 % LV Ejection Fraction 2C AL 63.3 % LA Diameter 3.7 cm RA Systolic Volume 4C AL 70.8 ml RA Systolic Volume 4C MOD 69.8 ml LA Sys Volume AL 60.1 cm cubed LA Sys Volume Index AL 33.1 cm cubed/m squared Aorta at Sinotubular Diameter 2.1 cm IVC Diameter 2.0 cm M-MODE LA Ao Ratio MM 1.5 AV Cusp Separation MM 1.3 cm DOPPLER AV Peak Velocity 166.0 cm/s LVOT Peak Velocity 74.0 cm/s AV Area Cont Eq vti 1.6 cm squared AV Area Cont Eq pk 1.4 cm squared MV Peak Velocity 92.0 cm/s MV Area PHT 5.2 cm squared Mitral E to A Ratio 0.8 TR Peak Velocity 334.0 cm/s TR Peak Gradient 44.6 mmHg TR Mean Velocity 253.0 cm/s TR Mean Gradient 27.7 mmHg TR Velocity Time Integral 94.3 cm PV Peak Velocity 97.0 cm/s RV Ejection Time 0.3 s FINDINGS Left Ventricle Normal left ventricular size and systolic function, EF 63%no regional wall motion abnormalities. Right Ventricle The right ventricle is normal in size and function. Right Atrium The right atrium is normal in size. Left Atrium The left atrium is normal in size. Mitral Valve No gross abnormalities noted Aortic Valve No gross abnormalities noted Tricuspid Valve Normal gross abnormalities no Pulmonic Valve Trace pulmonary valve regurgitation. Pericardium Normal pericardium without effusion. Aorta Normal ascending aorta dimension. IVC The inferior vena cava appears normal. CONCLUSIONS Normal left ventricular size and systolic function, EF 63%no regional wall motion abnormalities. No gross valvular abnormalities Normal chamber sizes. There is no pericardial effusion. There are no intracardiac masses. No similar previous studies are available for comparison Dr Olesya Pitts MD FACC (Electronically Signed) Final Date: 11 December 2024 14:47 S
[2024-12-11 13:18] LABS: Thyroid Stimulating Hormone 1.95 uIU/mL (0.27-4.20)
[2024-12-11] MEDS: morphine 4 mg/mL SDV 1 mL 2 MG IVP ×3 (13:18→22:43)
--- NOTE | 2024-12-11 13:26 | PC.NURSE ---
Message left on voicemail for patient contact Blu Irene to return call.
--- NOTE | 2024-12-11 13:38 | PC.NURSE ---
At approximately 1108 patient was at the nurses station requesting tea from [employer]. Staff heard patient fall. Immediate vs were obtained. Patient stated she felt dizzy but did not lose conciseness. Patient moving extremities with c/o right wrist pain. Patient was noted to have a low heart rate so a rapid was called at 1113. EKG was obtained. Labs and x rays were ordered. Patient was placed in a wrist splint to immobilize the joint. Patient denied tingling or numbness to fingers. Right hand was warm. She had c/o pain with movement of the right wrist.Patient received 650 mg Tylenol po for pain. A medical consult was obtained. Patient was then transfered to CSU. Report given to
--- NOTE | 2024-12-11 13:56 | PC.NURSE ---
Patient contact Blu Irene called this RN. Mr Teto was notified of patient fall and transfer to CSU. He would like any updates on patient when available [phone].
[2024-12-11] MEDS: HYDROcodone-acetaminophen 5-325 mg Tablet 1 TAB PO ×2 (15:02→21:21)
--- NOTE | 2024-12-11 17:26 | PM.CONSULT ---
Providers/Reason For Consult Consulting Physician/Specialty*: Dr. Holley Garzon?Orthopedics Reason for Consult*: Left distal radius and ulnar fractures Requesting Physician: Dr. Janna Ayala Attending Physician: Romaine Colunga MD History of Present Illness History of Present Illness Coral Rangel is a 64 year old female who was admitted to the NPU after checking in voluntarily for suicidal ideation. The patient got up to get some water, felt lightheaded, and fell to the floor. She tried to break her fall with her hands and this resulted in a left comminuted impacted distal radius fracture. She denies loss of consciousness. At the time of the fall, the patient was bradycardic with a heart rate of 30 bpm. The patient has been on propranolol twice a day and this was held by the hospitalist team. Plans from the hospitalist team were to consult orthopedics for the fracture of the wrist. The patient was transferred to the coronary care unit as opposed to the NPU. Review of Systems General: Reports: 10 or more systems reviewed and unremarkable except in HPI and below Const: Denies: fever(s), chills, body aches or change in appetite Eyes: Denies: change in vision, blurry vision or photophobia ENMT: Reports: hoarseness; Denies: throat pain, enlarged tonsils, odynophagia, dental pain or nasal congestion Card: Denies: chest pain, palpitations, irregular heart rhythm, edema, swelling of feet/ankles, lightheadedness, pre-syncope, dyspnea on exertion or orthopnea Resp: Denies: dyspnea, productive cough, non-productive cough, wheezing, stridor, pain on inspiration, change in phlegm color, hemoptysis or chest congestion GI: Denies: abdominal pain, nausea, vomiting, hematemesis, coffee ground emesis, dysphagia, heartburn, diarrhea, constipation, GI cramping, change in stool character, hematochezia or melena : Denies: flank pain, difficulty voiding, dysuria, urinary frequency, urinary urgency, urinary hesitancy or hematuria Musc: Denies: neck pain, back pain, extremity pain, joint swelling, joint warmth or deformity Skin/Breast: Denies: rash Neuro: Denies: headache(s), numbness in extremities, weakness in extremities, sensory changes, difficulty walking, frequent falls, dizziness, vertigo, behavioral changes, Slurred speech present or seizure-like activity Psych: Denies: anxiety, depression, suicidal ideation or homicidal ideation Endo: Denies: polyuria, polydipsia, tired all the time, cold intolerance or hot flashes Chacho/Lymph: Denies: easy bruising or easy bleeding Medications/Allergies Home Medications ?Medication ?Instructions ?Recorded ?Confirmed ?Last Taken ?Type carbamazepine 200 mg tablet 200 mg PO TID 04/25/22 12/09/24 12/09/24 13:00 History 200 mg hydrochlorothiazide 25 mg tablet 25 mg PO DAILY 04/25/22 12/09/24 12/09/24 09:00 History loratadine 10 mg tablet 10 mg PO DAILY PRN Itching 04/25/22 12/09/24 Unknown History omeprazole 40 mg capsule,delayed 40 mg PO DAILY 04/25/22 12/09/24 12/09/24 09:00 History release 40 mg potassium chloride 10 mEq 10 meq PO DAILY 04/25/22 12/09/24 1 Day Ago History capsule,extended release ~12/08/24 10 meq propranolol 20 mg tablet 20 mg PO BID 04/25/22 12/09/24 1 Day Ago History ~12/08/24 20 mg sumatriptan succinate 50 mg tablet 50 mg PO . DIRECTED PRN Migraine 04/25/22 12/09/24 Unknown History Headache ondansetron 4 mg disintegrating 4 mg PO Q8H PRN nausea and 07/13/22 12/09/24 Unknown Rx tablet vomiting #15 tabs lithium carbonate 300 mg 300 mg PO DAILY #30 tabs 10/05/24 12/09/24 12/09/24 09:00 Rx tablet,extended release 300 mg sertraline 25 mg tablet 25 mg PO DAILY #30 tabs 10/27/24 12/09/24 1 Day Ago Rx ~12/08/24 25 mg lamotrigine 25 mg tablet 25 mg PO BID 12/09/24 12/09/24 Unknown History levothyroxine 50 mcg tablet 50 mcg PO DAILY 12/09/24 12/09/24 12/09/24 08:00 History Allergies Allergy/AdvReac Type Severity Reaction Status Date / Time Penicillins Allergy ADR-Gastrointestinal Verified 11/26/24 07:46 Upset Current Medications Generic Name Dose Route Start Last Admin Trade Name Freq PRN Reason Stop Dose Admin Acetaminophen 650 mg 12/09/24 20:22 12/11/24 11:24 Acetaminophen 325 Mg Tablet PO 650 mg Q4H PRN Administration MILD PAIN Hydrocodone Bitart/Acetaminophen 1 tab 12/11/24 12:42 12/11/24 15:02 Hydrocodone-Acetaminophen 5-325 Mg Tablet PO 1 tab Q6H PRN Administration MODERATE PAIN Carbamazepine 200 mg 12/09/24 21:24 12/11/24 13:20 Carbamazepine 200 Mg Tablet PO 200 mg TID ENMANUEL Administration Hydrochlorothiazide 25 mg 12/10/24 09:00 12/11/24 08:15 Hydrochlorothiazide 25 Mg Tablet PO 25 mg DAILY ENMANUEL Administration Hydroxyzine Pamoate 50 mg 12/09/24 20:22 12/10/24 21:25 Hydroxyzine 25 Mg Capsule PO 50 mg Q6H PRN Administration ANXIETY Lamotrigine 25 mg 12/10/24 09:00 12/11/24 15:02 Lamotrigine 25 Mg Tablet PO 25 mg BID ENMANUEL Administration Levothyroxine Sodium 50 mcg 12/10/24 09:00 12/11/24 08:15 Levothyroxine 50 Mcg Tablet PO 50 mcg DAILY ENMANUEL Administration [place] Carbonate 300 mg 12/10/24 09:00 12/11/24 08:15 [place] Carbonate Er 300 Mg Tablet PO 300 mg On Hold: 12/11/24 08:58 DAILY ENMANUEL Administration Comment: [place] level @ 0830 Morphine Sulfate 2 mg 12/11/24 12:00 12/11/24 13:18 Morphine 4 Mg/Ml Sdv 1 Ml IVP 2 mg Q4H PRN Administration SEVERE PAIN Pantoprazole Sodium 40 mg 12/10/24 09:00 12/11/24 08:[address] 40 Mg Tablet PO 40 mg DAILY ENMANUEL Administration Potassium Chloride 10 meq 12/10/24 09:00 12/11/24 08:15 Potassium Chloride Er 10 Meq Tablet PO 10 meq DAILY ENMANUEL Administration Sertraline HCl 75 mg 12/11/24 09:00 12/11/24 10:50 Sertraline 50 Mg Tablet PO Not Given DAILY ENMANUEL Trazodone HCl 50 mg 12/09/24 20:22 12/10/24 21:25 Trazodone 50 Mg Tablet PO 50 mg BEDTIME PRN Administration SLEEP PFSH Acute PFSH: Medical History Psychiatric care Chronic pruritus Social History Smoking and tobacco/nicotine status: former use of tobacco/nicotine Alcohol intake: former Substance/Drug Use: never Adopted: No Caregiver/support person: No Lives independently: Yes Housing: Apartment Marital status: / Number of children: 4 Number of grandchildren: 5 Highest education level completed: High School Graduate service: No Current occupational status: unemployed Current occupational exposures/hazards: No Pets and animals: No Leisure activites: other Leisure activities details: watch TV drawing Sexually active: No Do you think of yourself as: Straight/Heterosexual Current gender identity: Female Ekaterina/Rastafarian: Taoism Protestant [employer] Special ekaterina needs: No Agree to transfusion: Yes Female Reproductive History: Para: 2 Spontaneous abortions: No Dietary Habits: Current diet type/program: regular Caffeine: Yes Caffeine intake frequency: coffee High-fat food intake: 0-1 times daily Daily servings fruits/vegetables: 0-1 Daily servings of milk/calcium: 0-1 Eating out: 1-3 times/week Reads food labels: seldom or never During the past year weight has: remained stable Exercise: What type of physical activity do you participate in?: walking Physical activity counseling: advised >150 min/week exercise (moderate intensity) Physical activity functional status: independent ambulation How many days of moderate to strenuous exercise, like a brisk walk, did you do in the last 7 days: 7 On those days that you engage in moderate to strenuous exercise, how many minutes, on average, do you exercise?: 30 Safety: Seatbelt use: always Helmet use: No Drive intoxicated or ride with intoxicated mule driver?: never Home Safety: Water heater temperature set < 120 degrees: Yes Working smoke detector in home: Yes Fire extinguisher in home: Yes Carbon monoxide detector in home: Yes Firearms in home: No Personal Safety: Do you feel safe at home: Yes NHANES Social Connection/Isolation: Are you now , , , , never or living with a partner?: In a typical week, how many times do you talk on the telephone with family, friends, or neighbors?: Three or More Times per Week How often do you get together with friends or relatives?: Three or More Times per Week Do you belong to any clubs or organizations such as methodist groups unions, fraternal or athletic groups, or school groups?: Yes Social isolation score (0-1 are the most socially isolated patients): 2 Social isolation score reviewed/action taken: Yes Vitals/I&O/Wt Last Vital Signs Temp 97.6 F 12/11/24 12:52 Pulse 63 12/11/24 14:47 Resp 16 12/11/24 13:18 BP 141/83 12/11/24 12:52 Pulse Ox 98 12/11/24 12:52 O2 Del Method Room Air 12/11/24 12:52 Physical Exam Const: COMMON NORMALS: no acute distress, average body habitus, patient oriented x3 and alert GENERAL APPEARANCE: cooperative and comfortable ORIENTATION/CONSCIOUSNESS: Yes awake HENMT: COMMON NORMALS: normocephalic and atraumatic HEAD & SCALP: normocephalic and atraumatic Eye: GENERAL EYE: appearance normal, both eyes and all related structures Chest: COMMONS NORMALS: normal inspection of the chest Resp: COMMON NORMALS: normal respiratory effort EFFORT & INSPECTION: Yes able to speak in complete sentences and Yes symmetric chest movement Extremity: LEFT UPPER EXTREMITY: Yes wrist (The patient's wrist is in the splint.) Left wrist: Yes inspection (No significant swelling), Yes ROM (Not evaluated secondary to fracture) and Yes neurovascular exam (Intact distally and able to move fingers) Neuro: COMMON NORMALS: patient oriented x3 SENSORIUM/ORIENTATION: Yes alert Psych: COMMON NORMALS: mental status grossly normal APPEARANCE: Yes grossly normal ATTITUDE: Yes calm and Yes engaged ATTENTION/CONCENTRATION: Yes attention grossly intact Skin: COMMON NORMALS: no rashes or lesions noted GENERAL SKIN EXAM: no rashes or lesions noted Data 12/11/24 11:27 12/11/24 11:27 Micro: Microbiology 12/09/24 16:47 Urine Culture - Final Urine,Clean Catch Xray Ortho: My impression: Patient's imaging studies are reviewed. There is a significantly comminuted left distal radius fracture seen on 3 views of the left wrist. There is significant volar are prominence of the distal radius. There is shortening of the distal radius. There is also a fracture of the distal ulna which is essentially nondisplaced. This includes a fracture at the junction of the metaphysis and diaphysis as well as fracture of the ulnar styloid. There is significant expansion of the distal radial fragments as well. A&P Assessment and plan 1. Closed fracture of left radius and ulna, initial encounter: The patient was seen in her room. Surgical procedure was discussed with her. She understands the risks and complications of the surgical procedure. She is in agreement with surgery which will be performed tomorrow. Plan is for open reduction internal fixation of the patient's comminuted shortened expanded distal radius fracture. PDMP PDMP Reviewed: Not Reviewed Coding Level of Care Code [facility] Closed fracture of left radius and ulna, initial encounter S52.92XA; S52.202A Encounter type: initial encounter Fracture type: closed Laterality: left
--- NOTE | 2024-12-11 18:02 | P.NPUPN_ITS ---
Subjective NPU 2 Subjective: Patient presents today reporting that she is doing okay all things considered. She reports that she is having pain but it is mostly being controlled. She identified understanding that she will be having surgery tomorrow to repair the fractures to her distal bones of her arms. She did not receive the increase in her Zoloft today but it will be her medications resumed now either before or after the surgery secondary to being n.p.o. before the surgery. She denied any side effects of her medications. Mental Status Exam 2 MSE Comments: This is an overweight versus obese white female looking older than her stated age in hospital gown with adequate grooming and eye contact. Absent dentition. No abnormal movements except for mild psychomotor retardation. Cooperative with exam in mild distress. Speech was decreased rate and volume and limited. Mood described as okay, affect congruent. Thought process organized. Thought content: Patient denies suicidal or homicidal homicidal ideation, there were no delusions reported or noted, she denied any auditory or visual hallucinations. Attention and concentration were intact and memory appeared reliable but none were formally tested. She is alert and oriented x 3. Insight and judgment appeared fair. Impulse control appeared limited. Intellectual ability limited versus impaired. Vitals/I&O/Wt Last Vital Signs Temp 97.6 F 12/11/24 12:52 Pulse 63 12/11/24 14:47 Resp 16 12/11/24 13:18 BP 141/83 12/11/24 12:52 Pulse Ox 98 12/11/24 12:52 O2 Del Method Room Air 12/11/24 12:52 Data NPU 12/12/24 02:50 12/12/24 02:50 Micro: Microbiology 12/09/24 16:47 Urine Culture - Final Urine,Clean Catch Microbiology 12/09/24 16:47 Urine,Clean Catch Urine Culture - Final A&P Assessment and plan 1. MDD (major depressive disorder): 2. Suicidal ideation: 3. Mild intellectual disability: Plan: This is a 64-year-old white female known to [facility] psychiatry through outpatient services recently resuming services this year after a approximately 12+ years with fairly recent inpatient hospitalization in [place] about 6 months ago reporting significant depression, anxiety and suicidal thoughts. Patient was started on 25 mg of Zoloft back in September with no adjustment to the medication since then. He presented open 2 treatment recommendations and medication adjustments with a recent overdose after a break- up about 6 months ago. 1. Continue current medication. Increased Zoloft from 25 mg to 75 mg p.o. daily. Get a trough lithium level and likely increase lithium from 300 mg to 600 mg daily and divided doses versus once daily. 2. Encourage individual, group and milieu therapy. 3. Continue to 15-minute checks for safety. 4. Obtain collateral information. 5. Encourage sober living treatment after discharge to the highest level care to which she is willing to commit. 6. Patient transferred to CSU after fall and hospitalist consult. Scheduled for surgery tomorrow for fracture of radius and ulna distal left arm after fall on unit. 7. Will continue to follow PDMP PDMP Reviewed: Not Reviewed Attestations NPU 2 Medical Necessity Statement*: Inpatient hospitalization is medically necessary and the clinically appropriate intervention at this time. We will monitor/initiate medications and make changes as indicated. Likely length of stay 4-6 days. Coding Level of Care Code Acute Code for g Fwd Diagnoses MDD (major depressive disorder) F32.9 Suicidal ideation R45.851 Mild intellectual disability F70
--- NOTE | 2024-12-11 21:40 | ECG_ITS ---
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 Measurements Intervals [place] Rate: 86 P: 42 NE: 169 QRS: 5 QRSD: 102 T: 29 QT: 349 QTc: 418 Interpretive Statements SINUS RHYTHM INFERIOR MYOCARDIAL INFARCTION , PROBABLY OLD [40+ ms Q WAVE AND/OR ST/T ABNORMALITY IN II/aVF] Compared to ECG 12/11/2024 11:20:10 Myocardial infarct finding now present Sinus bradycardia no longer present Electronically Signed On 12-12-2024 17:45:59 CDT by Olesya Pitts M.D. [email or web address]
[2024-12-11 22:47] LABS: Troponin T (5th) Once < 6 ng/L (0-10)
[2024-12-12] VITALS (14 sets, daily range): BP systolic 100–159; BP diastolic 57–103; PULSE 66–92; RESP 10–20; TEMP 36.2–37.4; O2SAT 92–97
[2024-12-12 04:54] LABS: Hematocrit 39.0 % (36-47); Hemoglobin 12.40 g/dL (11.27-16.99); Mean Corpuscular HGB Conc 31.8 g/dL (30-55); Mean Corpuscular Hemoglobin 28.2 pg (27-33); Mean Corpuscular Volume 88.6 fl (85-98); Nucleated Red Blood Cells % 0 %; Platelet Count 254 10^3/cmm (157-399); Red Blood Count 4.40 10^6/uL (3.85-5.65); White Blood Count 9.71 10^3/uL (3.29-11.43)
[2024-12-12 05:21] LABS: Alanine Aminotransferase 8 U/L (0-33); Albumin Level 4.1 g/dL (3.5-5.2); Alkaline Phosphatase 131 U/L (35-105); Anion Gap 17.7 (5-19); Aspartate Amino Transferase 10 U/L (0-32); Blood Urea Nitrogen 24 mg/dL (8-23); Calcium 9.1 mg/dL (8.5-10.5); Carbon Dioxide 26 mmol/L (22-29); Chloride 100 mmol/L (98-107); Creatinine Clr Calc Pharmacy 60.2834; Globulin 3.6 g/dL (1.3-4.6); Glucose 101 mg/dL (65-115); Osmolality Calculated 294 mOsm/kg (285-295); Potassium 3.7 mmol/L (3.5-5.1); Sodium 140 mmol/L (136-145); Total Protein 7.7 g/dL (6.6-8.7)
[2024-12-12] MEDS: acetaminophen 1,000 MG/100 ML PIGGYBACK 400 MG IV (07:25)
--- NOTE | 2024-12-12 09:00 | XR_ITS ---
WS: [id number] C-ARM RADIOGRAPHS LEFT WRIST; 5 IMAGES HISTORY: LT WRIST ORIF; OR PICS COMPARISON: 12/11/2024 Intraoperative imaging during reduction and plate and screw fixation distal radial fracture. Fracture now in good position and alignment. Distal ulnar fracture unchanged. XR/XR wrist LT 2V [id number] IMPRESSION: Intraoperative imaging during ORIF distal LEFT radius.
[2024-12-12] MEDS: ceFAZolin 2,000 mg SDV 2000 MG IVP ×2 (09:20→17:45)
[2024-12-12] MEDS: ceFAZolin 1,000 mg SDV 1000 MG IRRIGATION (09:52)
--- NOTE | 2024-12-12 11:11 | P.OP_ITS ---
Operative Report Date of procedure: December 12, 2024 Pre-op diagnosis: Comminuted intra-articular left distal radius fracture Post-op diagnosis: Comminuted intra-articular left distal radius fracture Post-op findings: Severely comminuted intra-articular distal radius fracture with significant displacement and shortening Procedure done: Open reduction internal fixation left distal radius fracture with DBM putty bone grafting Implants: [place] distal radius volar plate, narrow short, DBM putty with cancellous chips Specimens removed/disposition: None Surgeon: Holley Garzon MD Cat Cracker Operator: [facility] operating room technicians Anesthesia: General (Per LMA with preoperative block, ASA 3) Estimated blood loss (mL): 5 Tourniquet time (min): 79 (At 250 mmHg) IV fluids (mL): 900 Urine output (mL): 0 (No Bateman) Complications: None Findings: Severely comminuted distal radius fracture with intra-articular comminution, shortening, transverse and vertical fracture pattern Condition: stable Disposition: PACU Brief History: This 64-year-old woman was in her usual state of health. She was admitted to the MPU voluntarily. While there, she got up to get a drink of water, she slipped on water on the floor, and fell onto her upper extremities suffering the above fracture. X-rays were obtained and diagnosis was made. The patient was then visited and plans were made for surgical intervention in the form of open reduction internal fixation. Procedure: Patient was brought to the operating theater, and after undergoing adequate general anesthesia, LMA, ASA 3, the patient's left upper extremity was prepped and draped in usual fashion utilizing DuraPrep.? A supplemental block was placed per anesthesia prior to induction of anesthesia.? The patient had a tourniquet placed high on the arm prior to prepping and draping.? Following prepping and draping, the arm was exsanguinated and the tourniquet was elevated.? Total tourniquet time was 79 minutes at 250 mmHg.? Prior to commencement of the surgical procedure, a surgical pause was performed.? At the time of the surgical pause, we confirmed the site and side of surgery as well as the patient's identity and preoperative surgical markings.? We also confirmed availability of equipment and appropriate preoperative IV antibiotics which was Ancef 2 g.? Fluoroscopy was also brought into position so that we could visualize the fracture and hardware throughout the surgical procedure.? The fracture was evaluated prior to tourniquet placement. Following elevation of the tourniquet as well as the surgical pause, appropriate plate was chosen. The chosen plate was a Anoop volar plate short narrow. The skin was marked for appropriate incision length and location. An incision was made along the palmaris longus and continued down onto the volar surface of the radius.? Care was taken to avoid injury throughout the surgical procedure to the median nerve as well as to the radial artery.? The flexor carpi radialis was retracted medially.? We were able to essentially elevate the sheath of the flexor carpi radialis, and then I was able to place my finger directly onto the distal radius.? For the most part, the patient did her own dissection at the time of her injury.? Soft tissues were elevated off the distal radius to allow access to the fracture and also to the volar aspect of the distal radial shaft.? Reduction required manipulation after exposure. This manipulation included use of [place] and other retractors, and following manipulation, the fracture was essentially anatomic. Fluoroscopy was used to determine whether or not the reduction was appropriate.? We were able to reduce the fracture nearly anatomically.? We then evaluated the plate and chose the short narrow Anoop volar distal radius plate.? The plate was attached proximally and distally with some difficulty secondary to the patient's significant osteopenia. Prior to placing the plate, bone grafting was accomplished with DBM with cancellous putty.? A combination of locking and 1 nonlocking screw was utilized to attach the plate.? We had excellent fixation and reduction of the fracture. Fluoroscopy was utilized during the procedure.? Once the plate was fully attached, we had a near anatomic position to the distal radius and the distal radius was out to length.? Being satisfied with position, the area was copiously irrigated. There were no fascial tissues to close, and therefore, we closed the subcutaneous tissues with 2-0 interrupted Monocryl.? Skin was closed in a subcuticular fashion with 3-0 Monocryl.?Sterile dressing was then placed consisting of Dermabond, Steri-Strips, OpSite, fluffed fluffs, sterile soft roll, a volar splint, and an Bhupinder wrap. The tourniquet was released after 79 minutes. There were no complications. There were no specimens. The procedure was well tolerated. Plan is the patient will be discharged home. Related Problem List Diagnoses 1. Closed fracture of left radius and ulna, initial encounter:
--- NOTE | 2024-12-12 11:45 | ANE.PACU2 ---
Inpatient post-anesthesia follow up: Airway intact: Yes Vital signs: Temperature 97.7 F Pulse Rate 67 Respiratory Rate 11 Blood Pressure 113/69 Pulse Oximetry 98 Oxygen Delivery Me thod Room Air Oxygen Flow Rate 2 Fraction of Inspir ed Oxygen Hydration adequate: Yes Nausea and vomiting: No Pain level: 1 Mental status: Baseline
--- NOTE | 2024-12-12 11:53 | PC.NURSE ---
Arrived from OR, transferred to bed with lift sheet, Left arm in sling, surgical dressing to L wrist clean dry and intact
[2024-12-12 12:46] LABS: Lithium 0.3 mmol/L (0.6-1.2)
--- NOTE | 2024-12-12 13:25 | P.PN_ITS ---
Subjective 2 Subjective: Bradycardia is currently resolved. Heart rate is ranging between 70 to 88 bpm. She is status post ORIF for the radius fracture today. Tmax noted 99.4 this morning. Medications: Reviewed: Yes Vitals/I&O/Wt Last Vital Signs Temp 99.4 F 12/12/24 11:43 Pulse 88 12/12/24 13:08 Resp 16 12/12/24 13:08 BP 120/83 12/12/24 13:08 Pulse Ox 95 12/12/24 13:08 O2 Del Method Nasal Cannula 12/12/24 11:43 O2 Flow Rate 2 12/12/24 11:43 12/11/24 12/12/24 12/12/24 22:59 06:59 14:59 Intake Total 150 / 150 Output Total 5 / 5 Balance 145 / 145 Physical Exam 2 Narrative: General: No acute distress, AO x3 HEENT: PERRLA, pupils bilaterally equal and reactive, pallors not present Chest: Normal vesicular breath sounds, no added sounds, equal good air entry bilaterally CVS: S1-S2 regular, no murmurs, no tachycardia, no gallops, no rubs Abdomen: Soft, nontender, no organomegaly, bowel sounds present Neuro: No focal deficits, no facial deformity, AO x3, power 5/5 in all limbs Extremities: left wrist deformity noted , painful to touch Data 12/12/24 02:50 12/12/24 02:50 Micro: Microbiology 12/10/24 19:53 Urine Culture - Final Urine,Clean Catch 12/09/24 16:47 Urine Culture - Final Urine,Clean Catch A&P Assessment and plan 1. Suicidal ideation: Patient admitted to general psychiatry unit for suicidal ideation voluntarily. Continue psychiatry care As recommended 2. Syncope: Syncopal episode today. Patient denies any dyspnea palpitations or vomiting. States she did very dizzy and lightheaded. At the time of events her heart rate was noted to be 30 bpm. At the time of this assessment patient's heart rate is 40 bpm, sinus bradycardia. Blood pressure is maintained today. No mental status changes. She is awake alert oriented. Likely syncope was related to bradycardia. Moved to cardiac stepdown. Continue close telemetry monitoring for any worsening. She currently has no neurological deficits. Do not believe this was a neurological event. 3. Sinus bradycardia: Sinus bradycardia, suspect related to beta-isiah use. Discontinue propranolol. Last dose given at 8 AM today. Monitor heart rate off the beta-blockers. Atropine 0.5 mg IV as needed if heart rate less than 35. May need to add dopamine infusion if remains persistently bradycardic. Check baseline troponin. Electrolytes potassium and magnesium noted to be within normal limits Check TSH. 4. Closed fracture of left radius and ulna, initial encounter: Fracture of the radius and ulna related to fall on the left hand. Comminuted fracture of both bones noted. Wrist splint ordered. Orthopedic service to be consulted to assess for any surgical intervention. Plan: Dvt ppx: Low risk , patient is ambulatory Full code December 13, 2023. Patient was taken to the operating room today and is now status post ORIF of the left distal radius fracture with DBM putty bone grafting.She received a nerve block post op for pain control. No new complaints today. Sinus bradycardia now improved. HR 70-88bpm today with holding propranolol. Asymptomatic bacteriuria on UA, urine cx with no growth. PDMP PDMP Reviewed: Not Reviewed Attestations 2 Medical Necessity Statement*: s/p ORIF today , continue telemetry monitoring Coding Level of Care Code Acute Code for Chg Fwd Moderate MDM includes number and complexity of problems actively addressed during encounter, amount and/or complexity of data reviewed/ordered and described risk of complication, morbidity or mortality of management as documented Diagnoses Suicidal ideation R45.851 Syncope R55 Sinus bradycardia R00.1 Closed fracture of left radius and ulna, initial encounter S52.92XA; S52.202A Encounter type: initial encounter Fracture type: closed Laterality: left
[2024-12-12] MEDS: HYDROcodone-acetaminophen 5-325 mg Tablet 1 TAB PO ×2 (13:45→23:04)
--- NOTE | 2024-12-12 17:39 | W.PM.NPUPNS ---
Subjective NPU Subjective: Patient presented today reporting that she is doing better. That left lower arm and hand are in a cast that she reports is not that bad. She once again endorsed being dizzy and we discussed working with the physical medical team to ensure that we know what the cause of that is given that her significant other reported that she had been falling a lot at home and she is at increased risk of problematic injury now that she has this recently repaired lower arm. We will identify whether it is safe for her to return to the neuropsychiatric unit. We discussed Dr. Conner returning tomorrow and taking over care. She denied any side effects to her medication however we need to be sure that none of her medications are responsible for this falling. Mental Status Exam MSE Comments: This is an overweight versus obese white female looking older than her stated age in hospital gown with adequate grooming and eye contact. Absent dentition. No abnormal movements except for mild psychomotor retardation. Cooperative with exam in mild distress. Speech was decreased rate and volume and limited. Mood described as okay, affect congruent. Thought process organized. Thought content: Patient denies suicidal or homicidal homicidal ideation, there were no delusions reported or noted, she denied any auditory or visual hallucinations. Attention and concentration were intact and memory appeared reliable but none were formally tested. She is alert and oriented x 3. Insight and judgment appeared fair. Impulse control appeared limited. Intellectual ability limited versus impaired. Vitals/I&O/Wt Last Vital Signs Temp 98.5 F 12/12/24 15:22 Pulse 92 12/12/24 15:22 Resp 16 12/12/24 15:22 BP 116/83 12/12/24 15:22 Pulse Ox 92 12/12/24 15:22 O2 Del Method Room Air 12/12/24 15:22 O2 Flow Rate 2 12/12/24 11:43 12/12/24 12/12/24 12/13/24 14:59 22:59 06:59 Intake Total 150 / 150 Output Total 5 / 5 Balance 145 / 145 Data NPU 12/13/24 04:23 12/13/24 04:23 Micro: Microbiology 12/10/24 19:53 Urine Culture - Final Urine,Clean Catch Microbiology 12/10/24 19:53 Urine,Clean Catch Urine Culture - Final A&P Assessment and plan 1. MDD (major depressive disorder): 2. Suicidal ideation: Patient admitted to general psychiatry unit for suicidal ideation voluntarily. Continue psychiatry care As recommended 3. Mild intellectual disability: 4. Syncope: Syncopal episode today. Patient denies any dyspnea palpitations or vomiting. States she did very dizzy and lightheaded. At the time of events her heart rate was noted to be 30 bpm. At the time of this assessment patient's heart rate is 40 bpm, sinus bradycardia. Blood pressure is maintained today. No mental status changes. She is awake alert oriented. Likely syncope was related to bradycardia. Moved to cardiac stepdown. Continue close telemetry monitoring for any worsening. She currently has no neurological deficits. Do not believe this was a neurological event. 5. Sinus bradycardia: Sinus bradycardia, suspect related to beta-isiah use. Discontinue propranolol. Last dose given at 8 AM today. Monitor heart rate off the beta-blockers. Atropine 0.5 mg IV as needed if heart rate less than 35. May need to add dopamine infusion if remains persistently bradycardic. Check baseline troponin. Electrolytes potassium and magnesium noted to be within normal limits Check TSH. 6. Closed fracture of left radius and ulna, initial encounter: Fracture of the radius and ulna related to fall on the left hand. Comminuted fracture of both bones noted. Wrist splint ordered. Orthopedic service to be consulted to assess for any surgical intervention. Plan: This is a 64-year-old white female known to [facility] psychiatry through outpatient services recently resuming services this year after a approximately 12+ years with fairly recent inpatient hospitalization in [place] about 6 months ago reporting significant depression, anxiety and suicidal thoughts. Patient was started on 25 mg of Zoloft back in September with no adjustment to the medication since then. He presented open 2 treatment recommendations and medication adjustments with a recent overdose after a break-up about 6 months ago. 1. Continue current medication. Increased Zoloft from 25 mg to 75 mg p.o. daily. Get a trough lithium level and likely increase lithium from 300 mg to 600 mg daily and divided doses versus once daily. 2. Encourage individual, group and milieu therapy. 3. Continue to 15-minute checks for safety. 4. Obtain collateral information. 5. Encourage sober living treatment after discharge to the highest level care to which she is willing to commit. 6. Patient transferred to [facility] after fall and hospitalist consult. Scheduled for surgery tomorrow for fracture of radius and ulna distal left arm after fall on unit. Can return to the neuropsychiatric unit when medically stable. Will speak to hospitalist about reported dizziness to ensure that we do understand the cause of this prior to her going home now that she will also need to be protecting this recently repaired casted fracture. 7. Will continue to follow PDMP PDMP Reviewed: Not Reviewed Attestations NPU Medical Necessity Statement*: Inpatient hospitalization is medically necessary and the clinically appropriate intervention at this time. We will monitor/initiate medications and make changes as indicated. Likely length of stay 3 to 5 days. Coding Level of Care Code Acute Code for Chg Fwd Diagnoses MDD (major depressive disorder) F32.9 Suicidal ideation R45.851 Mild intellectual disability F70 Syncope R55 Sinus bradycardia R00.1 Closed fracture of left radius and ulna, initial encounter S52.92XA; S52.202A Encounter type: initial encounter Fracture type: closed Laterality: left
[2024-12-13] MEDS: ceFAZolin 2,000 mg SDV 2000 MG IVP ×2 (02:10→08:23)
[2024-12-13 04:24] VITALS: BP 118/77; PULSE 67; RESP 15; TEMP 36.3; O2SAT 94
[2024-12-13 04:57] LABS: Hematocrit 33.6 % (36-47); Hemoglobin 10.60 g/dL (11.27-16.99); Mean Corpuscular HGB Conc 31.5 g/dL (30-55); Mean Corpuscular Hemoglobin 27.7 pg (27-33); Mean Corpuscular Volume 87.7 fl (85-98); Nucleated Red Blood Cells % 0 %; Platelet Count 235 10^3/cmm (157-399); Red Blood Count 3.83 10^6/uL (3.85-5.65); White Blood Count 10.36 10^3/uL (3.29-11.43)
[2024-12-13 05:16] LABS: Alanine Aminotransferase 6 U/L (0-33); Albumin Level 3.6 g/dL (3.5-5.2); Alkaline Phosphatase 120 U/L (35-105); Anion Gap 16.3 (5-19); Aspartate Amino Transferase 10 U/L (0-32); Blood Urea Nitrogen 22 mg/dL (8-23); Calcium 8.2 mg/dL (8.5-10.5); Carbon Dioxide 25 mmol/L (22-29); Chloride 105 mmol/L (98-107); Creatinine Clr Calc Pharmacy 67.8188; Globulin 2.9 g/dL (1.3-4.6); Glucose 131 mg/dL (65-115); Osmolality Calculated 301 mOsm/kg (285-295); Potassium 3.3 mmol/L (3.5-5.1); Sodium 143 mmol/L (136-145); Total Protein 6.5 g/dL (6.6-8.7)
[2024-12-13] MEDS: HYDROcodone-acetaminophen 5-325 mg Tablet 1 TAB PO (05:46)
[2024-12-13 06:00] VITALS: BP 113/69; PULSE 67; RESP 11; TEMP 36.5; O2SAT 98
--- NOTE | 2024-12-13 10:30 | PC.SOCIAL ---
IMM Updated Updated pt on IMM. No questions voiced. Provided pt a copy. Initialed, dated, & timed copy in chart.
[2024-12-13] MEDS: HYDROcodone-acetaminophen 7.5-325 mg Tablet 1 TAB PO ×3 (11:16→23:01)
--- NOTE | 2024-12-13 12:58 | P.PN_ITS ---
Subjective 2 Subjective: dizziness this AM. Vitals/I&O/Wt Last Vital Signs Temp 97.7 F 12/13/24 06:00 Pulse 67 12/13/24 06:00 Resp 11 L 12/13/24 06:00 BP 113/69 12/13/24 06:00 Pulse Ox 98 12/13/24 06:00 O2 Del Method Room Air 12/13/24 04:24 O2 Flow Rate 2 12/12/24 11:43 12/12/24 12/13/24 12/13/24 22:59 06:59 14:59 Intake Total 420 / 570 1480 / 1480 Balance 420 / 565 1480 / 1480 Weight last 48 hrs Weight 89.358 kg Physical Exam 2 Const: COMMON NORMALS: no acute distress and patient oriented x3 HENMT: COMMON NORMALS: normocephalic and atraumatic HEAD & SCALP: n ormocephalic and atraumatic Eye: COMMON NORMALS: Equal, round and reactive pupils present and EOMs intact bilaterally PUPIL: Yes Equal, round and reactive pupils present Neck/C-Spine: COMMON NORMALS: supple and no JVD Lymph: LYMPHATIC: no lymphadenopathy noted and no lymphedema noted Resp: COMMON NORMALS: normal respiratory effort, No retractions and clear to auscultation bilaterally AUSCULTATION: clear to auscultation bilaterally Cardio: COMMON NORMALS: no JVD, regular rate, regular rhythm, S1 normal heart sound present, S2 normal heart sound present, No gallops present (Cardio) and No murmurs present (Cardio) RATE: regular rate RHYTHM: regular rhythm H EART SOUNDS: S1 normal heart sound present and S2 normal heart sound present GI: COMMON NORMALS: Soft to palpation, non-tender and no masses PALPATION: Yes Soft to palpation Extremity: NARRATIVE EXTREMITY EXAM: left arm in cast after ORIF Neuro: COMMON NORMALS: patient oriented x3 and CN's II-XII intact bilaterally Psych: COMMON NORMALS: Normal thought process present, cooperative, normal affect and speech normal SPEECH: Yes normal speech THOUGHT PROCESS: Normal thought process present Skin: COMMON NORMALS: no rashes or lesions noted, no wounds and turgor normal GENERAL SKIN EXAM: no rashes or lesions noted and turgor normal Data 12/13/24 04:23 12/13/24 04:23 Micro: Microbiology 12/10/24 19:53 Urine Culture - Final Urine,Clean Catch A&P Assessment and plan 1. Closed fracture of left radius and ulna, initial encounter: 2. Syncope: 3. Suicidal ideation: 4. Psychiatric care: Plan: 64 year old female presenting with SI, left radius and ulna fracture. 1. Suicidal ideation: Patient admitted to general psychiatry unit for suicidal ideation voluntarily. Continue psychiatry care as recommended 2. Syncope: Patient denies any dyspnea palpitations or vomiting. Ongoing dizziness and lightheadedness Blood pressure is maintained today. No mental status changes. She is awake alert oriented. Likely syncope was related to bradycardia. Moved to cardiac stepdown. Continue close telemetry monitoring for any worsening. She currently has no neurological deficits. Do not believe this was a neurological event. 3. Sinus bradycardia: Sinus bradycardia, suspect related to beta-isiah use. Discontinue propranolol, unclear why she was on this, she is unsure heart rate improved off the beta-isiah Atropine 0.5 mg IV as needed if heart rate less than 35. May need to add dopamine infusion if remains persistently bradycardic. troponin negative Electrolytes potassium and magnesium noted to be within normal limits TSH WNL 4. Closed fracture of left radius and ulna, initial encounter: Fracture of the radius and ulna related to fall on the left hand. Comminuted fracture of both bones noted. Orthopedics consulted, now s/p ORIF on 12/12. follow up with ortho as indicated pain medication increased. Plan: Dvt ppx: Low risk , patient is ambulatory Full code Disposition - able to transfer back to psychiatry care. - Follow up with ortho as indicated - cont. off propranolol, Randall's done per PT, meclizine for dizziness PRN> PDMP PDMP Reviewed: Not Reviewed Attestations 2 Medical Necessity Statement*: able to transfer back to psychiatry care today. Time Spent in Patient Care: 16 - 35 minutes (>than 50% of time sp ent in counselling and/or direct pt care on unit) . Coding Level of Care Code Acute Code for Chg Fwd Diagnoses Closed fracture of left radius and ulna, initial encounter S52.92XA; S52.202A Encounter type: initial encounter Fracture type: closed Laterality: left Syncope R55 Suicidal ideation R45.851 Psychiatric care Z76.89
[2024-12-13 14:00] VITALS: BP 162/87; PULSE 68; RESP 16; TEMP 36.5; O2SAT 96
--- NOTE | 2024-12-13 17:55 | PC.NURSE ---
report called to NPU Talked to Ms Byrd staff nurse in npu about the transfer of Ms Moncada.
--- NOTE | 2024-12-13 18:20 | P.PN_ITS ---
Subjective 2 Subjective: Patient is doing well. She is seen in her room and ready to be transferred back to NPU. Medications: Reviewed: Yes Vitals/I&O/Wt Last Vital Signs Temp 97.7 F 12/13/24 14:00 Pulse 68 12/13/24 14:00 Resp 16 12/13/24 14:00 BP 162/87 12/13/24 14:00 Pulse Ox 96 12/13/24 14:00 O2 Del Method Room Air 12/13/24 04:24 O2 Flow Rate 2 12/12/24 11:43 12/13/24 12/13/24 12/13/24 06:59 14:59 22:59 Intake Total 1720 / 1720 Balance 1720 / 1720 Weight last 48 hrs Weight 197 lb Physical Exam 2 Const: COMMON NORMALS: no acute distress, average body habitus, patient oriented x3 and alert GENERAL APPEARANCE: cooperative and comfortable O RIENTATION/CONSCIOUSNESS: Yes awake HENMT: COMMON NORMALS: normocephalic and atraumatic HEAD & SCALP: n ormocephalic and atraumatic Eye: GENERAL EYE: appearance normal, both eyes and all related structures Chest: COMMONS NORMALS: normal inspection of the chest Resp: COMMON NORMALS: normal respiratory effort EFFORT & INSPECTION: Yes able to speak in complete sentences and Yes symmetric chest movement Extremity: LEFT UPPER EXTREMITY: Yes wrist (Splint is in place in a sling) Left wrist: Yes palpation (Some tenderness to range of motion of the fingers), Yes ROM (Wrist range of motion not evaluated) and Yes neurovascular exam (Intact distally) Neuro: COMMON NORMALS: patient oriented x3 SENSORIUM/ORIENTATION: Yes alert Psych: COMMON NORMALS: mental status grossly normal APPEARANCE: Yes grossly normal ATTITUDE: Yes calm and Yes engaged ATTENTION/CONCENTRATION: Yes attention grossly intact Skin: COMMON NORMALS: no rashes or lesions noted GENERAL SKIN EXAM: no rashes or lesions noted Data 12/13/24 04:23 12/13/24 04:23 A&P Assessment and plan 1. Closed fracture of left radius and ulna, initial encounter: The patient was seen in her room. She is heading back to NPU. She is neurologically intact, but it is uncomfortable for her to range her fingers. There is minimal swelling in the fingers. I have advised her that she needs to follow-up in 2 weeks, but I will not be continuing to follow her in the hospital as this essentially is an outpatient procedure. PDMP PDMP Reviewed: Not Reviewed Attestations 2 Medical Necessity Statement*: Per hospitalist and psychiatric team Coding Level of Care Code Acute Code for Chg Fwd Diagnoses Closed fracture of left radius and ulna, initial encounter S52.92XA; S52.202A Encounter type: initial encounter Fracture type: closed Laterality: left
--- NOTE | 2024-12-13 18:29 | P.NPUPN_ITS ---
Subjective NPU 2 Subjective: 64-year-old female with a surgical inter vention including a repair of her fracture in her left radius and ulna currently brought back to the neuropsychiatric unit today. She had minimized any suicidal ideation. She had reported continued concerns about having falls repeatedly including the one that had led to her to fracturing her left wrist. The patient had denied having suicidal thoughts currently. She had reported some improvement in mood. She had reported having a history of seizures. She had reported that she had struggled with taking her medications on a regular basis and required help at home with her nurses. She had reported no side effects from her medication regimen at this time. Mental Status Exam 2 MSE Comments: This is an overweight versus obese white female looking older than her stated age in hospital gown with adequate grooming and eye contact wearing a left cast. Absent dentition. No abnormal movements except for mild psychomotor retardation. She was cooperative with exam in mild distress. Speech was normal in rate and volume and prosody. Her mood was described as okay. Her affect was slightly restricted in range. Thought process was linear and organized. Thought content: Patient denies suicidal or homicidal homicidal ideation, there were no delusions reported or noted, she denied any auditory or visual hallucinations. Attention and concentration were intact and memory appeared reliable but none were formally tested. She is alert and oriented x 3. Insight and judgment appeared fair. Impulse control appeared limited. 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 Vitals/I&O/Wt Last Vital Signs Temp 97.7 F 12/13/24 14:00 Pulse 68 12/13/24 14:00 Resp 16 12/13/24 14:00 BP 162/87 12/13/24 14:00 Pulse Ox 96 12/13/24 14:00 O2 Del Method Room Air 12/13/24 04:24 O2 Flow Rate 2 12/12/24 11:43 12/13/24 12/13/24 12/13/24 06:59 14:59 22:59 Intake Total 1720 / 1720 360 / 2080 Balance 1720 / 1720 360 / 2080 Weight last 48 hrs Weight 89.358 kg Data NPU 12/13/24 04:23 12/13/24 04:23 A&P Assessment and plan 1. Closed fracture of left radius and ulna, initial encounter: Fracture of the radius and ulna related to fall on the left hand. Comminuted fracture of both bones noted. Wrist splint ordered. Orthopedic service to be consulted to assess for any surgical intervention. 2. MDD (major depressive disorder): 3. Suicidal ideation: Patient admitted to general psychiatry unit for suicidal ideation voluntarily. Continue psychiatry care As recommended 4. Mild intellectual disability: 5. Syncope: Syncopal episode today. Patient denies any dyspnea palpitations or vomiting. States she did very dizzy and lightheaded. At the time of events her heart rate was noted to be 30 bpm. At the time of this assessment patient's heart rate is 40 bpm, sinus bradycardia. Blood pressure is maintained today. No mental status changes. She is awake alert oriented. Likely syncope was related to bradycardia. Moved to cardiac stepdown. Continue close telemetry monitoring for any worsening. She currently has no neurological deficits. Do not believe this was a neurological event. 6. Sinus bradycardia: Plan: This is a 64-year-old white female known to [facility] psychiatry through outpatient services recently resuming services this year after a approximately 12+ years with fairly recent inpatient hospitalization in [place] about 6 months ago reporting significant depression, anxiety and suicidal thoughts. Patient was started on 25 mg of Zoloft back in September with no adjustment to the medication since then. He presented open 2 treatment recommendations and medication adjustments with a recent overdose after a break- up about 6 months ago. 1. Continue current medications including [place] 300mg daily, Lamotrigine 25mg bid, tegretol 200mg tid, and zoloft at 75mg daily. 2. Encourage individual, group and milieu therapy. 3. Continue to 15-minute checks for safety. 4. Obtain collateral information. 5. Encourage sober living treatment after discharge to the highest level care to which she is willing to commit. 6. Continued concern regarding falls and reports of syncope at home. PDMP PDMP Reviewed: Not Reviewed Attestations NPU 2 Medical Necessity Statement*: Inpatient hospitalization is medically necessary and the clinically appropriate intervention at this time. We will monitor/initiate medications and make changes as indicated. Likely length of stay 1-2 days. Coding Level of Care Code Acute Code for g Fwd Diagnoses Closed fracture of left radius and ulna, initial encounter S52.92XA; S52.202A Encounter type: initial encounter Fracture type: closed Laterality: left MDD (major depressive disorder) F32.9 Suicidal ideation R45.851 Mild intellectual disability F70 Syncope R55 Sinus bradycardia R00.1
[2024-12-13 19:51] VITALS: BP 165/90; PULSE 65; RESP 18; TEMP 36.5; O2SAT 99
[2024-12-14] MEDS: HYDROcodone-acetaminophen 7.5-325 mg Tablet 1 TAB PO ×3 (05:47→16:35)
[2024-12-14 06:00] VITALS: BP 155/83; PULSE 67; RESP 18; TEMP 36.7; O2SAT 96
--- NOTE | 2024-12-14 10:42 | PC.NURSE ---
Dr. Conner gave verbal order for PT/OT/ST to eval and treat.
--- NOTE | 2024-12-14 13:05 | P.PN_ITS ---
Subjective 2 Subjective: ongoing dizziness. Vitals/I&O/Wt Last Vital Signs Temp 98.0 F 12/14/24 06:00 Pulse 67 12/14/24 06:00 Resp 18 12/14/24 06:00 BP 155/83 12/14/24 06:00 Pulse Ox 96 12/14/24 06:00 O2 Del Method Room Air 12/14/24 06:00 O2 Flow Rate 2 12/12/24 11:43 12/13/24 12/14/24 12/14/24 22:59 06:59 14:59 Intake Total 2079 Balance 2079 Weight last 48 hrs Weight 89.358 kg Physical Exam 2 Narrative: Physical Exam Const: no acute distress and patient orient ed x3 HENMT: normocephalic and atraumatic Eye: Equal, round and r eactive pupils pre sent and EOMs inta ct bilaterally Neck/C-Spine: COMMON NORMALS: marie pple and no JVD Lymph: no lymphadenopathy noted and no lymp hedema noted Resp: normal respiratory effort, No retrac tions and clear to auscultation bila terally Cardio: no JVD, regular ra te, regular rhythm , S1 normal heart sound present, S2 normal heart sound present, No araujo ps present and No murmurs present GI: Soft to palpation, non-tender and no masses Extremity: left arm in cast a fter ORIF Neuro: patient oriented x 3 and CN's II-XII intact bilaterally Psych: Normal thought pro cess present, coop erative, normal af fect and speech no rmal Skin: no rashes or lesio ns noted, no wound s and turgor ivy l Data 12/13/24 04:23 12/13/24 04:23 A&P Assessment and plan 1. Closed fracture of left radius and ulna, initial encounter: 2. Sinus bradycardia: 3. Suicidal ideation: 4. Psychiatric care: Plan: 64 year old female presenting with SI, left radius and ulna fracture. 1. Suicidal ideation: Patient admitted to general psychiatry unit for suicidal ideation voluntarily. Continue psychiatry care as recommended 2. Syncope: Patient denies any dyspnea palpitations or vomiting. Ongoing dizziness and lightheadedness Blood pressure is maintained today. No mental status changes. She is awake alert oriented. Likely syncope was related to bradycardia. Moved to cardiac stepdown. Continue close telemetry monitoring for any worsening. She currently has no neurological deficits. Do not believe this was a neurological event. Chronic dizziness - ongoing for about 3 months or longer. - Randall's did not illicit symptoms - would potentially benefit form vestibular or balance clinic on D/C - can work with PCP and psychiatry for medication review, reduce as able, may need to trial off possible meds that can lead to dizziness for 2-4 weeks and rechallenge in clinic, repeat for any suspected medication. 3. Sinus bradycardia: Sinus bradycardia, suspect related to beta-isiah use. Discontinue propranolol, unclear why she was on this, she is unsure heart rate improved off the beta-isiah Atropine 0.5 mg IV as needed if heart rate less than 35. May need to add dopamine infusion if remains persistently bradycardic. troponin negative Electrolytes potassium and magnesium noted to be within normal limits TSH WNL 4. Closed fracture of left radius and ulna, initial encounter: Fracture of the radius and ulna related to fall on the left hand. Comminuted fracture of both bones noted. Orthopedics consulted, now s/p ORIF on 12/12. follow up with ortho as indicated pain medication increased. Plan: Dvt ppx: Low risk , patient is ambulatory Full code Disposition - Follow up with ortho as indicated - cont. off propranolol, Randall's done per PT, meclizine for dizziness PRN, cont. to follow as OP for medication optimization. PDMP PDMP Reviewed: Not Reviewed Attestations 2 Medical Necessity Statement*: inpatient psych for SI Time Spent in Patient Care: 16 - 35 minutes (>than 50% of time sp ent in counselling and/or direct pt care on unit) . Coding Level of Care Code Acute Code for Chg Fwd Diagnoses Closed fracture of left radius and ulna, initial encounter S52.92XA; S52.202A Encounter type: initial encounter Fracture type: closed Laterality: left Sinus bradycardia R00.1 Suicidal ideation R45.851 Psychiatric care Z76.89
[2024-12-14 13:57] VITALS: BP 127/72; PULSE 73; RESP 14; TEMP 36.9; O2SAT 94
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
[2024-12-14 15:08] VITALS: BP 127/72; PULSE 73; RESP 16; TEMP 36.9; O2SAT 94
== END 2024-12-14 16:49 | disposition home or self-care (01) | DRG 876 ==
LOC: ER 18:05 → NP 18:42 → CSU 12-11 12:59 → NP 12-13 18:24
PROVIDERS: Internal Medicine; Specialist; Student in an Organized Health Care Education/Training Program; Admitting Provider Psychiatry & Neurology Psychiatry; Emergency Provider Physician Assistant; Visit Provider Psychiatry & Neurology Psychiatry
PROC: 0PSJ04Z Reposition Left Radius with Internal Fixation Device, Open Approach (ICD-10-PCS; principal; 2024-12-12 09:25)
DX: F33.9 Major depressive disorder, recurrent, unspecified (principal); S52.572A Other intraarticular fracture of lower end of left radius, initial encounter for closed fracture; S52.602A Unspecified fracture of lower end of left ulna, initial encounter for closed fracture; R45.851 Suicidal ideations; F41.9 Anxiety disorder, unspecified; Z87.891 Personal history of nicotine dependence; Z81.8 Family history of other mental and behavioral disorders; Z81.1 Family history of alcohol abuse and dependence; Z81.3 Family history of other psychoactive substance abuse and dependence; E66.9 Obesity, unspecified; Z68.34 Body mass index [BMI] 34.0-34.9, adult; F70 Mild intellectual disabilities; Z91.51 Personal history of suicidal behavior; R00.1 Bradycardia, unspecified; Z88.0 Allergy status to penicillin; R55 Syncope and collapse; W01.0XXA Fall on same level from slipping, tripping and stumbling without subsequent striking against object, initial encounter; Y92.239 Unspecified place in hospital as the place of occurrence of the external cause
CPT/HCPCS: 36415; 73100; 73110; 76000; 80048; 80053; 80156; 80178; 80306; 80307; 81001; 84443; 84484; 85025; 87086; 93005; 93306; 97116; 97150; 97162; 97165; 97167; 97530; 99285; C1713; J0131; J0690; J1100; J2250; J2270; J2405; J2704; J2795; J3010; J7030; J8597; J9999

== ENCOUNTER 2024-12-22 05:00 | Outpatient (CLI) | payer OTHER, MEDICAID, SELFPAY ==
[2024-07-14 14:25] VITALS: BP 149/90; BMI 36.0
== END 2024-12-22 05:01 | disposition home or self-care (01) ==
LOC: SOT 01-06 16:35
PROVIDERS: Visit Provider Nurse Practitioner
DX: Z46.89 Encounter for fitting and adjustment of other specified devices (principal); S52.202A Unspecified fracture of shaft of left ulna, initial encounter for closed fracture; S52.92XA Unspecified fracture of left forearm, initial encounter for closed fracture; W18.30XA Fall on same level, unspecified, initial encounter
CPT/HCPCS: 99024; L3982

== ENCOUNTER → 2024-12-27 15:24 | Outpatient (BNVA) | payer OTHER, MEDICAID, SELFPAY ==
[2024-07-14 14:25] VITALS: BP 149/90; BMI 36.0
== END ==
PROVIDERS: Visit Provider Nurse Practitioner
DX: S52.92XA Unspecified fracture of left forearm, initial encounter for closed fracture (principal); S52.202A Unspecified fracture of shaft of left ulna, initial encounter for closed fracture; X58.XXXA Exposure to other specified factors, initial encounter
CPT/HCPCS: 73110

== ENCOUNTER → 2025-01-17 15:19 | Outpatient (BNVA) | payer OTHER, MEDICAID, SELFPAY ==
[2024-07-14 14:25] VITALS: BP 149/90; BMI 36.0
== END ==
PROVIDERS: Visit Provider Nurse Practitioner
DX: Z98.890 Other specified postprocedural states (principal)
CPT/HCPCS: 73110; 99024

== ENCOUNTER → 2025-02-14 09:32 | Outpatient (BNVA) | payer OTHER, MEDICAID, SELFPAY ==
[2024-07-14 14:25] VITALS: BP 149/90; BMI 36.0
== END ==
PROVIDERS: Visit Provider Nurse Practitioner
DX: Z98.890 Other specified postprocedural states (principal)
CPT/HCPCS: 73110

== ENCOUNTER 2025-02-21 06:30 | Outpatient (RCR) | payer MEDICARE, MEDICAID, SELFPAY ==
[2024-07-14 14:25] VITALS: BP 149/90; BMI 36.0
== END 2025-03-23 23:59 | disposition home or self-care (01) ==
LOC: SOT 06:30
PROVIDERS: Visit Provider Nurse Practitioner
DX: S52.92XD Unspecified fracture of left forearm, subsequent encounter for closed fracture with routine healing (principal); S52.202D Unspecified fracture of shaft of left ulna, subsequent encounter for closed fracture with routine healing; X58.XXXD Exposure to other specified factors, subsequent encounter
CPT/HCPCS: 97022; 97110; 97140; 97165; 97530